=== PATIENT | male | born 1950 | race Caucasian/White ===

== ENCOUNTER 2020-07-10 12:48 | Emergency (ER) | payer OTHER, SELFPAY ==
[2020-07-10 12:49] VITALS: BP 164/110; PULSE 86; RESP 18; TEMP 36.5; O2SAT 97; BMI 34.0
[2020-07-10 12:56] VITALS: BP 164/110; RESP 88; O2SAT 98
--- NOTE | 2020-07-10 12:56 | ED_ITS ---
HPI - Wound/Laceration General: Chief Complaint: Wound/Laceration Stated Complaint: TABLE SAW VS L INDEX FINGER Time Seen by Provider: 07/10/20 12:55 History of Present Illness: HPI narrative: Patient is a 69-year-old male who comes to the ED with injury to left index finger. Patient says yesterday he was using his table saw and cut the tip of his left index finger. He was seen at [facility] today and they sent him over here. Patient says he is up-to-date on his tetanus. He says pain is mild and he does not need any pain meds while here in the ED. Associated symptoms: Denies chills, fever(s), nausea or vomiting Review of Systems Const: Denies: fever(s), chills or fatigue Eyes: Denies: change in vision or eye discomfort ENMT: Denies: throat pain, odynophagia, nasal discharge or nasal congestion Card: Denies: chest pain, palpitations, edema, swelling of feet/ankles, dyspnea on exertion or orthopnea Resp: Denies: dyspnea, productive cough or non-productive cough GI: Denies: abdominal pain, nausea, vomiting, diarrhea, constipation or hematochezia : Denies: flank pain, difficulty urinating, dysuria or hematuria Musc: Reports: extremity pain (Laceration injury to tip of left index finger.); Denies: neck pain, back pain or extremity swelling Skin/Breast: Denies: rash or new lesions Neuro: Denies: headache(s), numbness in extremities or weakness in extremities Physical Exam Const: COMMON NORMALS: patient oriented x3 HENMT: COMMON NORMALS: normocephalic HEAD & SCALP: normocephalic MOUTH: Normal oral and palatal mucosa present THROAT: posterior oropharynx normal and uvula midline Neck/C-Spine: COMMON NORMALS: supple GENERAL: Yes normal visual inspection Resp: COMMON NORMALS: normal respiratory effort, No retractions, No use of accessory muscles and clear to auscultation bilaterally AUSCULTATION: clear to auscultation bilaterally Cardio: COMMON NORMALS: regular rate, regular rhythm, S1 normal heart sound present, S2 normal heart sound present, No gallops present (Cardio), No clicks present (Cardio), No murmurs present (Cardio) and Peripheral pulses 2+ throughout RATE: regular rate RHYTHM: regular rhythm HEART SOUNDS: S1 normal heart sound present and S2 normal heart sound present PERIPHERAL PULSES: Peripheral pulses 2+ throughout GI: COMMON NORMALS: Normal to inspection, nondistended, normoactive bowel sounds present, Soft to palpation, non-tender and no masses PALPATION: Yes Soft to palpation : COMMON NORMALS: Yes no CVA tenderness BLADDER/KIDNEY EXAM: Yes no CVA tenderness Back/Pelvis: COMMON NORMALS: no CVA tenderness Extremity: LEFT UPPER EXTREMITY: Yes hand & digits Left hand and digits: Yes inspection (Index finger tip has skin avulsed with injury to the distal nail. The nail matrix is normal and undisturbed. No active bleeding, purulent drainage or contamination seen.), Yes palpation (Very mild tenderness.), Yes ROM (Full) and Yes neurovascular exam (Intact) Neuro: COMMON NORMALS: patient oriented x3 and moves all extremities Skin: TRAUMA: other (Avulsion of skin on distal aspect of left index finger. No erythema, purulent drainage, bleeding or warmth. Exam showed no signs of infection.) Course 2 Vital Signs: Vital signs: Vital Signs Temperature 97.7 F 07/10/20 12:49 Pulse Rate 77 07/10/20 13:55 Respiratory Rate 17 07/10/20 13:55 Blood Pressure 143/94 07/10/20 13:55 Pulse Oximetry 96 07/10/20 13:55 MDM - Wound/Laceration MDM Narrative: Medical decision making narrative: Patient is a 6-year-old male comes to the ED after cutting the tip of his left index finger with a table saw. Injury occurred yesterday. Exam shows no active bleeding, contamination or purulent drainage seen. Left index finger has a avulsed skin tip with distal nail damage. Nail matrix normal intact. Exam showed no signs of infection present. X-ray shows fracture of distal phalanx of index finger. Patient diagnosed with open fracture due to wound. He was given a shot of Rocephin while here in the ED wound was cleaned and bacitracin was placed and bandage applied on wound. Finger splint placed. I placed an order to case management for patient to be referred to orthopedic doctor and wound care clinic. Patient was discharged with prescription of cephalexin. Return to ED precautions given. Patient understood and agree with plan. Imaging Data^: Xray Ortho: Attestation: I personally reviewed and interpreted this imaging study as follows: My impression: Left hand x-ray?open distal phalanx fracture of index finger. Discharge Plan Discharge Patient Disposition: Home Clinical Impression: Open fracture of tuft of distal phalanx of finger Avulsion of skin of finger Qualifiers: Encounter type: initial encounter Qualified Code(s): S61.209A - Unspecified open wound of unspecified finger without damage to nail, initial encounter Condition: Stable Prescriptions: New cephalexin 500 mg capsule 500 mg PO Q6H 10 Days Qty: 40 RF: 0 Triple Antibiotic 3.5mg-400 unit- 5,000 unit/gram ointment 1 applic TOPICAL DAILY Qty: 9 RF: 0 Discharge Orders: Discharge Order (Routine); Ordered 07/10/20 Ordered By: Elmer Sánchez Discharge Diet: Regular Discharge Activity: Limit activity as instructed Patient Instructions: Fractures - Phalanx (Finger), Skin Avulsion (ED) Activity Restrictions/Additional Instructions: Follow-up with medical provider as directed. Case management should be contacting you in the next several days to set up an appointment with wound care. [facility]. Take medications as prescribed. Clean and rebandage daily. Return to the ER or your medical provider if condition worsens. Please read and understand discharge instructions. If any questions, please ask. Discharge Date/Time: 07/10/20 13:59 Coding Level of Care Code ED Grinder Dresser for Adair Castillo Exam Comprehensive
--- NOTE | 2020-07-10 12:56 | XR_ITS ---
WS: [id number] XR hand LT min 3V* [id number] REASON FOR EXAM: index finger cut by table saw FINDINGS: Amputation of the soft tissues of the distal left index finger. Underlying this there is amputation a nd fragmentation of the medial portion of the tuft of the distal phalanx of the left index finger. Minor degenerative arthropathic changes in the fingers and thumb. Small lucent septated area in the left radial styloid, possible enchondroma. XR/XR hand LT min 3V* [id number] IMPRESSION: Soft tissue and bone injury of the distal left index finger as above. Small lucent lesion in the distal left radius as above.
--- NOTE | 2020-07-10 13:10 | PC.NURSE ---
pt laceration to left 1st finger. wound cleaned and rebandaged.
[2020-07-10] MEDS: cefTRIAXone 1,000 mg SDV 1000 MG IM (13:45)
[2020-07-10] MEDS: lidocaine 1% INJ 20 mL 2.1 ML XX (13:45)
[2020-07-10] MEDS: bacitracin ointment Pkt 1 EACH TOPICAL (13:46)
[2020-07-10 13:55] VITALS: BP 143/94; PULSE 77; RESP 17; O2SAT 96
--- NOTE | 2020-07-11 09:04 | DCPLANNER ---
revenue cycle manager had message to schedule a follow up appointment for patient with ortho and Wound Care. revenue cycle manager called Wound Care, spoke with Desi, a follow up appointment is scheduled for , July 17, 2020 at 8:30 with Aimee. revenue cycle manager also called the ortho clinic, spoke with Mimi, gave her the patients information. revenue cycle manager was told that patients information would be printed and reviewed. Clinic will call patient with appointment information. [facility], caseworker protective services [facility].
--- NOTE | 2020-07-16 15:40 | DCPLANNER ---
Patient has a follow up appointment scheduled for Tuesday, July 16, 2020 at 8:[address] Avila. Clinic will call patient with appointment information.
--- NOTE | 2020-08-07 15:41 | DCPLANNER ---
Patient had a follow up appointment for patient with Wound Care - 07.17.20 - patient did attend Patient had a follow up appointment with ortho on 07.16.20 - patient did attend appointment
== END 2020-07-10 13:59 | disposition home or self-care (01) ==
PROVIDERS: Emergency Provider Physician Assistant
DX: S62.631B Displaced fracture of distal phalanx of left index finger, initial encounter for open fracture (principal); W27.0XXA Contact with workbench tool, initial encounter
CPT/HCPCS: 12345; 73130; 96372; 99281; 99283; J0696

== ENCOUNTER → 2020-07-16 08:35 | Outpatient (BNVA) | payer OTHER, SELFPAY | PROVIDERS: Referring Provider Physician Assistant; Visit Provider Specialist | DX: S62.639B Displaced fracture of distal phalanx of unspecified finger, initial encounter for open fracture (principal); X58.XXXA Exposure to other specified factors, initial encounter | CPT/HCPCS: 73140 ==

== ENCOUNTER 2020-07-17 08:19 | Outpatient (CLI) | payer OTHER, SELFPAY | END 2020-07-17 08:20 | disposition home or self-care (01) | LOC: WOUND 08:21 | PROVIDERS: Visit Provider Nurse Practitioner Family | DX: L98.498 Non-pressure chronic ulcer of skin of other sites with other specified severity (principal) | CPT/HCPCS: 11042 ==

== ENCOUNTER → 2020-07-23 08:39 | Outpatient (BNVA) | payer OTHER, SELFPAY | PROVIDERS: Visit Provider Specialist | DX: S62.639B Displaced fracture of distal phalanx of unspecified finger, initial encounter for open fracture (principal); X58.XXXA Exposure to other specified factors, initial encounter | CPT/HCPCS: 73140 ==

== ENCOUNTER 2020-07-23 09:15 | Outpatient (CLI) | payer OTHER, SELFPAY | END 2020-07-23 09:16 | disposition home or self-care (01) | LOC: WOUND 09:16 | PROVIDERS: Visit Provider Nurse Practitioner Family | DX: L98.498 Non-pressure chronic ulcer of skin of other sites with other specified severity (principal) | CPT/HCPCS: 11042 ==

== ENCOUNTER 2020-08-06 09:06 | Outpatient (CLI) | payer OTHER, SELFPAY | END 2020-08-06 09:07 | disposition home or self-care (01) | LOC: WOUND 09:08 | PROVIDERS: Visit Provider Thoracic Surgery (Cardiothoracic Vascular Surgery) | DX: L98.492 Non-pressure chronic ulcer of skin of other sites with fat layer exposed (principal); I96 Gangrene, not elsewhere classified | CPT/HCPCS: 11042 ==

== ENCOUNTER 2020-08-13 09:04 | Outpatient (CLI) | payer OTHER, SELFPAY | END 2020-08-13 09:05 | disposition home or self-care (01) | LOC: WOUND 09:05 | PROVIDERS: Visit Provider Nurse Practitioner Family | DX: W29.8XXA Contact with other powered hand tools and household machinery, initial encounter; S61.221A Laceration with foreign body of left index finger without damage to nail, initial encounter; X58.XXXA Exposure to other specified factors, initial encounter | CPT/HCPCS: 11042 ==

== ENCOUNTER 2020-08-20 09:25 | Outpatient (CLI) | payer OTHER, SELFPAY | END 2020-08-20 09:26 | disposition home or self-care (01) | LOC: WOUND 09:29 | PROVIDERS: Visit Provider Thoracic Surgery (Cardiothoracic Vascular Surgery) | DX: L98.492 Non-pressure chronic ulcer of skin of other sites with fat layer exposed (principal) | CPT/HCPCS: 11042 ==

== ENCOUNTER 2020-09-03 09:31 | Outpatient (CLI) | payer OTHER, SELFPAY | END 2020-09-03 09:32 | disposition home or self-care (01) | LOC: WOUND 09:31 | PROVIDERS: Visit Provider Nurse Practitioner Family | DX: Z09 Encounter for follow-up examination after completed treatment for conditions other than malignant neoplasm (principal) | CPT/HCPCS: 99212 ==

== ENCOUNTER 2023-01-12 10:21 | Outpatient (CLI) | payer OTHER, SELFPAY ==
--- NOTE | 2023-01-12 10:40 | MR_ITS ---
WS: [id number] MRI BRAIN WITH AND WITHOUT CONTRAST HISTORY: POSITIVE ROMBERG, NEW ONSET TREMOR, SHUFFLED GAIT COMPARISON: None available. TECHNIQUE: Multiplanar imaging performed through the brain with MultiHance 20 ml's IV. No acute infarcts are seen. Reynolds-white matter differentiation is well preserved. Mild cerebral atroph y. Numerous T2 and FLAIR signal hyperintensities throughout the white matter. Signal abnormalities in the supratentorial white matter and symmetric and bilateral. No infarct. There is also mild bilatera l cerebellar volume loss. No susceptibility artifacts or prior lacunar infarcts. Ventricles and extra-axial spaces are normal. Clivus and pituitary gland are normal. Visualized posterior fossa and brainstem are also normal. Postcontrast images are negative for masses or vascular malformations. Dural venous sinuses are normal. Paranasal sinuses: Very mild enhancement involving mucosa of the paranasal sinuses. No air-fluid leve ls. Mastoid air cells: Normal. Calvarium and scalp: Normal. MR/MR head wo/w con [id number] IMPRESSION: 1. No acute infarct or enhancing masses. 2. Very mild atrophy with moderate small vessel ischemic type changes in the w jaxon matter. 3. No prior infarcts. 4. Mild bilateral cerebellar atrophy.
[2023-01-12] MEDS: gadobenate dimeglumine 20 mL vial IV (13:15)
== END 2023-01-12 10:22 | disposition home or self-care (01) ==
LOC: RAD 10:25
PROVIDERS: PCP Nurse Practitioner; Visit Provider Nurse Practitioner
DX: R25.1 Tremor, unspecified (principal); R26.89 Other abnormalities of gait and mobility; G31.9 Degenerative disease of nervous system, unspecified
CPT/HCPCS: 70553; A9577

== ENCOUNTER → 2023-03-30 10:21 | Outpatient (BNVA) | payer OTHER, SELFPAY | PROVIDERS: PCP Nurse Practitioner; Referring Provider Nurse Practitioner; Visit Provider Psychiatry & Neurology Neurology | DX: I10 Essential (primary) hypertension; G20 Parkinson's disease; R68.89 Other general symptoms and signs; R26.81 Unsteadiness on feet; E11.9 Type 2 diabetes mellitus without complications; Z79.84 Long term (current) use of oral hypoglycemic drugs | CPT/HCPCS: 99203 ==

== ENCOUNTER → 2023-03-30 10:21 | Outpatient (BNVA) | payer OTHER, SELFPAY | PROVIDERS: PCP Nurse Practitioner; Referring Provider Nurse Practitioner; Visit Provider Psychiatry & Neurology Neurology | DX: R25.1 Tremor, unspecified (principal); I10 Essential (primary) hypertension | CPT/HCPCS: 86780 ==

== ENCOUNTER → 2023-03-30 10:21 | Outpatient (BNVA) | payer OTHER, SELFPAY | PROVIDERS: PCP Nurse Practitioner; Referring Provider Nurse Practitioner; Visit Provider Psychiatry & Neurology Neurology | DX: R25.1 Tremor, unspecified (principal); I10 Essential (primary) hypertension | CPT/HCPCS: 80053; 82306; 82607; 82746; 83735; 83921; 84155; 84165; 84439; 84443; 84481; 85025; 85651; 86140; 86160; 86162; 86235; 86255; 86334; 86376; 86431; 86617 ==

== ENCOUNTER 2023-04-11 11:35 | Outpatient (CLI) | payer OTHER, SELFPAY ==
--- NOTE | 2023-04-11 12:30 | USCV_ITS ---
Callum Anderson Age: 72 Gender: M : 1950 Exam Date: 04/11/2023 11:57 Ordering Phys: Charles Cantu MD Technologist: KAREN Exam Location: [facility] [place] Indication: TREMORS Risk Factors: Previous Vascular Surgery: Right Brachial BP: / Left Brachial BP: / Right Left Velocity (cm/s) Spectral Plaque Velocity (cm/s) Spectral Plaque Syst/Diast Broadening Syst/Diast Broadening 98.10/ 15.40 Prox CCA 164.70/ 17.10 79.50/ 12.00 Mid CCA 121.20/ 18.60 76.00/ 18.80 Distal CCA 93.70 / 12.10 48.00/ 9.20 Prox ICA 69.10 / 16.80 54.40/ 14.30 Mid ICA 72.20 / 18.90 49.60/ 13.20 Distal ICA 58.20 / 13.90 117.80 ECA 126.80 0.55 ICA/CCA 0.44 Antegrade Vertebral Antegrade 38.10/ 11.70 cm/s 82.30/ 8.50 cm/s Tri Subclavian Tri 201.5 114.4 0 0 CONCLUSIONS Right ICA stenosis <50%. Mild atheromatous plaque right carotid bulb/ICA. Left ICA stenosis <50%. Mild atheromatous plaque left carotid bulb/ICA. Intimal thickening in the common carotid arteries and internal carotid arteries bilaterally. Normal antegrade Doppler flow noted in the right vertebral artery. Normal antegrade Doppler flow noted in the left vertebral artery. Callum Bullock MD (Electronically Signed) Final Date: 11 April 2023 14:02 S
[2023-04-11] MEDS: perflutren protein-a microsphr 0.22 mg/mL SDV 3 mL IV (12:43)
--- NOTE | 2023-04-11 13:00 | USCV_ITS ---
Callum Anderson Age: 72 Gender: M : 1950 Exam Date: 04/11/2023 12:12 Ordering Phys: Charles Cantu MD Technologist: KAREN [place] [facility] [place]ication: TREMORS, LEG SWELLING BP: 134 / 67 HR: 89 Rhythm: Sinus Technical Quality: Adequate MEASUREMENTS (Male / Female) Normal Values 2D ECHO LVOT Diameter 2.0 cm LV Ejection Fraction MOD 2C 65.6 % LV Ejection Fraction 2C AL 65.6 % LA Diameter 2.6 cm LA Width 2.9 cm LA Height 5.3 cm RA Width 1.9 cm RA Height 4.3 cm Aorta at Sinotubular Diameter 2.3 cm M-MODE Aortic Annulus Diameter 2.4 cm LA Ao Ratio MM 1.1 MV E Point Septal Separation 0.7 cm DOPPLER AV Peak Velocity 160.7 cm/s LVOT Peak Velocity 155.0 cm/s AV Area Cont Eq vti 2.6 cm squared AV Area Cont Eq pk 3.1 cm squared MV Peak Velocity 127.0 cm/s MV Area PHT 4.1 cm squared Mitral E to A Ratio 0.6 MV E' Velocity 42.0 cm/s Mitral E to MV E' Ratio 8.3 Mitral E to LV E' Lateral Ratio 7.1 Mitral E to LV E' Septal Ratio 10.2 TR Peak Velocity 184.4 cm/s TR Peak Gradient 13.6 mmHg TR Mean Velocity 132.2 cm/s TR Mean Gradient 8.0 mmHg TR Velocity Time Integral 36.9 cm TV Peak E Velocity 57.0 cm/s Right Atrial Pressure 8.0 mmHg Pulmonary Artery Systolic Pressu 21.6 mmHg PV Peak Velocity 131.0 cm/s RV Acceleration Time 0.1 s RV Ejection Time 0.3 s RV AcT/ET 0.4 FINDINGS Left Ventricle Normal left ventricular size, systolic function and wall thickness, with no regional wall motion abnormalities. Left ventricular ejection fraction is estimated at 70 %. Grade I diastolic dysfunction (abnormal relaxation filling pattern), normal to mildly elevated filling pressures. Right Ventricle Normal right ventricular size and systolic function. Right ventricular systolic pressure 21.6 mmHg. Right Atrium Normal right atrial size. Left Atrium Normal left atrial size. Mitral Valve Structurally normal mitral valve. No mitral valve stenosis. Trace mitral valve regurgitation. Aortic Valve Structurally normal trileaflet aortic valve. No aortic valve stenosis. No aortic valve regurgitation. Tricuspid Valve Structurally normal tricuspid valve. No tricuspid valve stenosis. Trace tricuspid valve regurgitation. Pulmonic Valve Pulmonic valve not well visualized. No pulmonary valve stenosis. Trace pulmonary valve regurgitation. Pericardium No pericardial effusion. Aorta Normal size aortic root and proximal ascending aorta. IVC Inferior vena cava not visualized. CONCLUSIONS 1. This is A technically difficult study. Optison was used per protocol. 2. Normal left ventricular size, systolic function and wall thickness, with no regional wall motion abnormalities. Left ventricular ejection fraction is estimated at 70 %. Grade I diastolic dysfunction (abnormal relaxation filling pattern), normal to mildly elevated filling pressures. 3. No significant valvular abnormality. 4. No prior similar studies to compare. Merary Chin MD (Electronically Signed) Final Date: 11 April 2023 16:32 S
== END 2023-04-11 11:36 | disposition home or self-care (01) ==
PROVIDERS: PCP Nurse Practitioner; Visit Provider Psychiatry & Neurology Neurology
DX: G20 Parkinson's disease (principal); M79.89 Other specified soft tissue disorders; I65.23 Occlusion and stenosis of bilateral carotid arteries; I11.0 Hypertensive heart disease with heart failure; I50.33 Acute on chronic diastolic (congestive) heart failure; E11.9 Type 2 diabetes mellitus without complications; K21.9 Gastro-esophageal reflux disease without esophagitis; E66.9 Obesity, unspecified; Z68.33 Body mass index [BMI] 33.0-33.9, adult; Z82.49 Family history of ischemic heart disease and other diseases of the circulatory system; Z79.84 Long term (current) use of oral hypoglycemic drugs; Z79.899 Other long term (current) drug therapy
CPT/HCPCS: 80053; 82306; 82607; 82746; 83735; 83921; 84155; 84165; 84439; 84443; 84481; 85025; 85651; 86140; 86160; 86162; 86235; 86255; 86334; 86376; 86431; 86617; 93880; 99214; C8929; Q9956

== ENCOUNTER → 2023-04-25 09:30 | Outpatient (BNVA) | payer OTHER, SELFPAY | PROVIDERS: PCP Nurse Practitioner; Visit Provider Internal Medicine Cardiovascular Disease | DX: I10 Essential (primary) hypertension (principal); R07.9 Chest pain, unspecified | CPT/HCPCS: 80053; 83735; 83880 ==

== ENCOUNTER → 2023-05-02 09:12 | Outpatient (BNVA) | payer OTHER, SELFPAY | PROVIDERS: PCP Nurse Practitioner; Visit Provider Podiatrist Foot & Ankle Surgery | DX: B35.1 Tinea unguium (principal); G62.9 Polyneuropathy, unspecified; I73.9 Peripheral vascular disease, unspecified; M21.6X1 Other acquired deformities of right foot; M21.6X2 Other acquired deformities of left foot; E11.42 Type 2 diabetes mellitus with diabetic polyneuropathy | CPT/HCPCS: 11721; 99204 ==

== ENCOUNTER → 2023-05-11 13:15 | Outpatient (BNVA) | payer OTHER, SELFPAY | PROVIDERS: PCP Nurse Practitioner; Visit Provider Psychiatry & Neurology Neurology | DX: G20 Parkinson's disease (principal) | CPT/HCPCS: 99212 ==

== ENCOUNTER → 2023-06-21 13:36 | Outpatient (BNVA) | payer OTHER, SELFPAY | PROVIDERS: PCP Nurse Practitioner; Visit Provider Psychiatry & Neurology Neurology | DX: G20.A1 Parkinson's disease without dyskinesia, without mention of fluctuations (principal) | CPT/HCPCS: 99212 ==

== ENCOUNTER → 2023-07-11 07:48 | Outpatient (BNVA) | payer OTHER, SELFPAY | PROVIDERS: PCP Nurse Practitioner; Visit Provider Podiatrist Foot & Ankle Surgery | DX: I73.9 Peripheral vascular disease, unspecified (principal); B35.1 Tinea unguium; G62.9 Polyneuropathy, unspecified; M21.6X1 Other acquired deformities of right foot; M21.6X2 Other acquired deformities of left foot; E11.42 Type 2 diabetes mellitus with diabetic polyneuropathy; Z79.84 Long term (current) use of oral hypoglycemic drugs | CPT/HCPCS: 11721 ==

== ENCOUNTER → 2023-07-18 08:38 | Outpatient (BNVA) | payer OTHER, SELFPAY | PROVIDERS: PCP Nurse Practitioner; Visit Provider Thoracic Surgery (Cardiothoracic Vascular Surgery) | DX: I89.0 Lymphedema, not elsewhere classified | CPT/HCPCS: 99212 ==

== ENCOUNTER 2023-07-19 11:52 | Outpatient (CLI) | payer OTHER, SELFPAY ==
--- NOTE | 2023-07-19 12:30 | USCV_ITS ---
Callum Anderson Age: 72 Gender: M : 1950 Exam Date: 07/19/2023 12:15 Ordering Phys: Armin Palmer MD (Andy) [email or web address] [place] Technologist: Raul Clark [place] [facility] [place]: HISTORY: PROCEDURES: FINDINGS: All deep veins demonstrated compressibility without evidence of intraluminal thrombus or increased echogenicity. Spectral analysis of Doppler signals demonstrates normal response to compression maneuvers indicating patency without obstruction. Reflux determinations were made with the patient in the dependent position, the weight being on the contralateral leg. There is significant reflux in lt gsaph distal. This patient wound not be a good canidate for thremal ablations due to the veins superficial location CONCLUSIONS 1. No evidence of DVT in the above-mentioned identifiable veins. 2. No significant venous reflux on the right side 3. Significant venous reflux of greater than 500 ms was noted at the below-knee segment of the greater saphenous vein on the left side. But the vein was found to be very superficial, 0.15 cm deep from the surface. 4. No other significant reflexes were noted in the deep or superficial veins. Dr Timo Floyd MD [facility] (Electronically Signed) Final Date: 21 July 2023 09:45 S
== END 2023-07-19 11:53 | disposition home or self-care (01) ==
LOC: RAD 11:52
PROVIDERS: PCP Nurse Practitioner; Visit Provider Thoracic Surgery (Cardiothoracic Vascular Surgery)
DX: R60.0 Localized edema (principal)
CPT/HCPCS: 93970

== ENCOUNTER → 2023-08-16 09:07 | Outpatient (BNVA) | payer OTHER, SELFPAY | PROVIDERS: PCP Nurse Practitioner; Visit Provider Internal Medicine Rheumatology | DX: M79.18 Myalgia, other site (principal); Z79.899 Other long term (current) drug therapy; R76.0 Raised antibody titer; B02.29 Other postherpetic nervous system involvement | CPT/HCPCS: 80076; 82565; 85025; 85651; 86140; 86200; 99204 ==

== ENCOUNTER 2023-08-24 13:02 | Outpatient (CLI) | payer OTHER, SELFPAY ==
--- NOTE | 2023-08-24 13:30 | USCV_ITS ---
Callum Anderson Age: 72 Gender: M : 1950 Exam Date: 08/24/2023 13:30 Ordering Phys: Buzz Eden MD Technologist: CAROL [place]am [place] [facility] [place]ication: Muscle Pain Risk Factors: Previous Vascular Surgery: RIGHT LEFT BP: 144.0 / 77.00 BP: 159.0/ 84.00 0 0 Waveform Velocity (cm/s) Velocity (cm/s) Waveform Triphasic 77.7 Iliac Prox 103.0 Triphasic Triphasic 96.2 Iliac Mid 90.3 Triphasic Triphasic 93.4 Iliac Distal 93.8 Triphasic Triphasic 83.5 SAMPLE WORKER 91.7 Triphasic Triphasic 97.4 SFA Prox 105.6 Triphasic Triphasic 88.1 SFA Mid 99.4 Triphasic Triphasic SFA Dist Triphasic 115.7 80.8 Triphasic 72.5 POP 89.4 Triphasic Triphasic 76.1 CATTERY OPERATOR 75.4 Triphasic Triphasic 86.0 DPA 81.4 Triphasic 0.9 YUKI 1.0 FINDINGS Intimal thickening and minimal plaques in the iliac and femoral arteries bilaterally Normal Doppler flow velocities and Doppler waveforms bilaterally Resting YUKI 0.9 on the right side and 1.0 on the left CONCLUSIONS 1. Normal resting YUKI on the left side with a normal arterial Doppler waveforms and velocities suggesting no significant arterial obstruction 2. Borderline low resting YUKI of 0.9 on the right side with a normal Doppler velocities and waveforms, could be related to technical problems. Dr Timo Floyd MD [facility] (Electronically Signed) Final Date: 27 August 2023 14:55 S
== END 2023-08-24 13:03 | disposition home or self-care (01) ==
LOC: RAD 13:03
PROVIDERS: PCP Nurse Practitioner; Visit Provider Internal Medicine Rheumatology
DX: M79.18 Myalgia, other site (principal); M62.89 Other specified disorders of muscle; M79.662 Pain in left lower leg; M79.661 Pain in right lower leg
CPT/HCPCS: 93925

== ENCOUNTER → 2023-10-10 10:31 | Outpatient (BNVA) | payer OTHER, SELFPAY | PROVIDERS: PCP Nurse Practitioner; Visit Provider Podiatrist Foot & Ankle Surgery | DX: B35.1 Tinea unguium (principal); E11.42 Type 2 diabetes mellitus with diabetic polyneuropathy; G62.9 Polyneuropathy, unspecified; I73.9 Peripheral vascular disease, unspecified; M21.6X1 Other acquired deformities of right foot; M21.6X2 Other acquired deformities of left foot | CPT/HCPCS: 11721 ==

== ENCOUNTER → 2023-11-15 09:52 | Outpatient (BNVA) | payer OTHER, SELFPAY | PROVIDERS: PCP Nurse Practitioner; Visit Provider Internal Medicine Rheumatology | DX: R76.0 Raised antibody titer (principal); B02.29 Other postherpetic nervous system involvement; M15.9 Polyosteoarthritis, unspecified; K21.9 Gastro-esophageal reflux disease without esophagitis; I10 Essential (primary) hypertension; E66.9 Obesity, unspecified; Z68.36 Body mass index [BMI] 36.0-36.9, adult | CPT/HCPCS: 99213; 99214 ==

== ENCOUNTER → 2023-12-19 10:52 | Outpatient (BNVA) | payer OTHER, SELFPAY | PROVIDERS: PCP Nurse Practitioner; Visit Provider Podiatrist Foot & Ankle Surgery | DX: B35.1 Tinea unguium (principal); G62.9 Polyneuropathy, unspecified; I73.9 Peripheral vascular disease, unspecified; M21.6X1 Other acquired deformities of right foot; M21.6X2 Other acquired deformities of left foot; E11.42 Type 2 diabetes mellitus with diabetic polyneuropathy | CPT/HCPCS: 11721 ==

== ENCOUNTER → 2024-02-28 10:39 | Outpatient (BNVA) | payer OTHER, SELFPAY | PROVIDERS: PCP Nurse Practitioner; Visit Provider Podiatrist Foot & Ankle Surgery | DX: B35.1 Tinea unguium (principal); G62.9 Polyneuropathy, unspecified; I73.9 Peripheral vascular disease, unspecified; M21.6X1 Other acquired deformities of right foot; M21.6X2 Other acquired deformities of left foot; E11.42 Type 2 diabetes mellitus with diabetic polyneuropathy; Z79.84 Long term (current) use of oral hypoglycemic drugs | CPT/HCPCS: 11721 ==

== ENCOUNTER → 2024-05-01 10:30 | Outpatient (BNVA) | payer OTHER, SELFPAY | PROVIDERS: PCP Nurse Practitioner; Visit Provider Podiatrist Foot & Ankle Surgery | DX: B35.1 Tinea unguium (principal); G62.9 Polyneuropathy, unspecified; I73.9 Peripheral vascular disease, unspecified; M21.6X1 Other acquired deformities of right foot; M21.6X2 Other acquired deformities of left foot; E11.42 Type 2 diabetes mellitus with diabetic polyneuropathy; Z79.84 Long term (current) use of oral hypoglycemic drugs | CPT/HCPCS: 11721 ==

== ENCOUNTER → 2024-05-08 14:48 | Outpatient (BNVA) | payer OTHER, SELFPAY | PROVIDERS: PCP Nurse Practitioner; Visit Provider Psychiatry & Neurology Neurology | DX: E11.9 Type 2 diabetes mellitus without complications (principal); G20.A1 Parkinson's disease without dyskinesia, without mention of fluctuations; I10 Essential (primary) hypertension | CPT/HCPCS: 99212 ==

== ENCOUNTER → 2024-07-03 11:03 | Outpatient (BNVA) | payer OTHER, SELFPAY | PROVIDERS: PCP Nurse Practitioner; Visit Provider Podiatrist Foot & Ankle Surgery | DX: B35.1 Tinea unguium (principal); G62.9 Polyneuropathy, unspecified; I73.9 Peripheral vascular disease, unspecified; M21.6X1 Other acquired deformities of right foot; M21.6X2 Other acquired deformities of left foot; E11.42 Type 2 diabetes mellitus with diabetic polyneuropathy; Z79.84 Long term (current) use of oral hypoglycemic drugs | CPT/HCPCS: 11055; 11721 ==

== ENCOUNTER → 2024-09-11 09:27 | Outpatient (BNVA) | payer OTHER, SELFPAY | PROVIDERS: PCP Nurse Practitioner; Visit Provider Podiatrist Foot & Ankle Surgery | DX: B35.1 Tinea unguium (principal); G62.9 Polyneuropathy, unspecified; I73.9 Peripheral vascular disease, unspecified; M21.6X1 Other acquired deformities of right foot; M21.6X2 Other acquired deformities of left foot; E11.42 Type 2 diabetes mellitus with diabetic polyneuropathy; L84 Corns and callosities; Z79.84 Long term (current) use of oral hypoglycemic drugs | CPT/HCPCS: 11055; 11721 ==

== ENCOUNTER → 2024-11-07 13:03 | Outpatient (BNVA) | payer OTHER, SELFPAY | PROVIDERS: PCP Nurse Practitioner; Visit Provider Psychiatry & Neurology Neurology | DX: G20.A1 Parkinson's disease without dyskinesia, without mention of fluctuations (principal) | CPT/HCPCS: 99212 ==

== ENCOUNTER → 2024-11-13 09:48 | Outpatient (BNVA) | payer OTHER, SELFPAY | PROVIDERS: PCP Nurse Practitioner; Visit Provider Podiatrist Foot & Ankle Surgery | DX: E11.42 Type 2 diabetes mellitus with diabetic polyneuropathy (principal); B35.1 Tinea unguium; L84 Corns and callosities; G62.9 Polyneuropathy, unspecified; I73.9 Peripheral vascular disease, unspecified; M21.6X1 Other acquired deformities of right foot; M21.6X2 Other acquired deformities of left foot; Z79.84 Long term (current) use of oral hypoglycemic drugs | CPT/HCPCS: 11055; 11721 ==

== ENCOUNTER → 2025-01-15 10:32 | Outpatient (BNVA) | payer OTHER, SELFPAY | PROVIDERS: PCP Nurse Practitioner; Visit Provider Podiatrist Foot & Ankle Surgery | DX: E11.42 Type 2 diabetes mellitus with diabetic polyneuropathy (principal); B35.1 Tinea unguium; L84 Corns and callosities; G62.9 Polyneuropathy, unspecified; I73.9 Peripheral vascular disease, unspecified; M21.6X1 Other acquired deformities of right foot; M21.6X2 Other acquired deformities of left foot; Z79.84 Long term (current) use of oral hypoglycemic drugs | CPT/HCPCS: 11055; 11721 ==

== ENCOUNTER → 2025-02-18 13:10 | Outpatient (BNVA) | payer OTHER, SELFPAY | PROVIDERS: PCP Nurse Practitioner; Visit Provider Psychiatry & Neurology Neurology | DX: G20.A1 Parkinson's disease without dyskinesia, without mention of fluctuations (principal) | CPT/HCPCS: 99212 ==

== ENCOUNTER → 2025-03-26 10:20 | Outpatient (BNVA) | payer OTHER, SELFPAY | PROVIDERS: PCP Nurse Practitioner; Visit Provider Podiatrist Foot & Ankle Surgery | DX: E11.42 Type 2 diabetes mellitus with diabetic polyneuropathy (principal); B35.1 Tinea unguium; G62.9 Polyneuropathy, unspecified; I73.9 Peripheral vascular disease, unspecified; Z79.84 Long term (current) use of oral hypoglycemic drugs | CPT/HCPCS: 11721 ==

== ENCOUNTER → 2025-06-05 10:48 | Outpatient (BNVA) | payer OTHER, SELFPAY | PROVIDERS: PCP Nurse Practitioner; Visit Provider Podiatrist Foot & Ankle Surgery | DX: E11.42 Type 2 diabetes mellitus with diabetic polyneuropathy (principal); B35.1 Tinea unguium; G62.9 Polyneuropathy, unspecified; I73.9 Peripheral vascular disease, unspecified; Z79.84 Long term (current) use of oral hypoglycemic drugs | CPT/HCPCS: 11721 ==

== ENCOUNTER 2025-06-11 14:38 | Inpatient (IN) | payer OTHER, SELFPAY ==
[2025-06-11] VITALS (48 sets, daily range): BP systolic 110–153; BP diastolic 64–94; PULSE 78–112; RESP 17–38; TEMP 36.6–37.1; O2SAT 92–97
--- OUTSIDE RECORDS SUMMARY | 2025-06-11 14:43 | XMS_ITS | Patient Health Record ---
Author Organization [facility] Address [address] [place] [address] Care Team Providers Care Industrial Electrician Name Role Phone DaviduJdie ross Primary Care Provider [phone] Sarah Virgen [phone] Reason For Referral No Information Medications Medication SIG (Take, Route, Frequency, Duration) Notes Start Date End Date Status Lisinopril 40 MG Oral Tablet Lisinopril 40 MG Oral Tablet 07/09/2019 Active Metoclopramide 10 MG Oral Tablet Metoclopramide 10 MG Oral Tablet 07/09/2019 Active Amlodipine 10 MG Oral Tablet Amlodipine 10 MG Oral Tablet 07/09/2019 Active Aspirin 81 MG Oral Tablet Aspirin 81 MG Oral Tablet 07/09/2019 Active Omeprazole 40 MG Enteric Coated Capsule Omeprazole 40 MG Enteric Coated Capsule 07/09/2019 Active Immunizations Vaccine Route Administration Date Status Comme nts Influenza (whole), CPT 32416 Inactive Unknown 05/29/2019 Administered Social History Social History Additional Details Category Social Info Options Details zzMigrated Social History Migrated Social History Smoking Status:Never smoked tobacco (finding) Encounters Encounter Location Date Provider Diagnosis [facility] [address] [place] [address] 06/12/2024 Sarah Virgen Plan Of Treatment No Information
--- NOTE | 2025-06-11 14:47 | W.ED.AMS ---
HPI - Altered Mental Status General: Chief Complaint: Altered Mental Status Stated Complaint: AMS Time Seen by Provider: 06/11/25 14:44 History of Present Illness: 74-year-old man with a history of obesity, advanced Parkinson's, congestive heart failure, diabetes, hypertension and GERD who presents to the emergency room with difficulty speaking. His said symptoms started right at noon. He had been fine earlier today walking and talking. Upon arrival here he is completely aphasic. He can answer questions by nodding or using his fingers for numbers but cannot say his name or anything else. No focal weakness. He has chronic weakness in his legs and from a sitting position he has difficulty lifting them. No weakness in either of his arms. He follows commands appropriately. No obvious visual deficits. Related Data Home Medications ?Medication ?Instructions ?Recorded ?Confirmed omeprazole 40 mg capsule,delayed 40 mg PO DAILY 03/02/21 06/05/25 release magnesium oxide 400 mg PO DAILY 04/11/23 06/05/25 metformin 500 mg tablet 1,000 mg PO BID 04/11/23 06/05/25 omega-3 fatty acids [Fish Oil 1,000 mg PO DAILY 04/11/23 06/05/25 Concentrate] potassium chloride 20 mEq 20 meq PO DAILY 04/11/23 06/05/25 tablet,extended release acetaminophen 500 mg tablet 1,000 mg PO BID 08/16/23 06/05/25 (Tylenol Extra Strength) amlodipine 10 mg tablet (Norvasc) 10 mg PO DAILY 11/07/24 06/05/25 losartan 50 mg tablet 50 mg PO DAILY 11/13/24 06/05/25 rosuvastatin 20 mg tablet 20 mg PO DAILY 11/13/24 06/05/25 sertraline 50 mg tablet 50 mg PO DAILY 11/13/24 06/05/25 Previous Rx's ?Medication ?Instructions ?Recorded spironolactone 25 mg tablet 25 mg PO DAILY #90 tabs 04/11/23 diabetic shoes with 3 inserts #1 ea 08/18/23 diabetic shoes with 3 inserts #1 ea 12/19/23 diabetic shoes with 3 inserts #1 ea 05/01/24 carbidopa 25 mg-levodopa 100 mg 1 tab PO QID 90 days #360 tabs 02/18/25 tablet (Sinemet) cholecalciferol (vitamin D3) 625 50,000 unit PO .weekly #14 caps 02/18/25 mcg (25,000 unit) capsule Allergies Allergy/AdvReac Type Severity Reaction Status Date / Time No Known Allergies Allergy Verified 06/05/25 10:51 Review of Systems Narrative: Constitutional symptoms: Negative except as documented in HPI. Skin symptoms: Negative except as documented in HPI. Eye symptoms: Negative except as documented in HPI. ENMT symptoms: Negative except as documented in HPI. Respiratory symptoms: Negative except as documented in HPI. Cardiovascular symptoms: Negative except as documented in HPI. Gastrointestinal symptoms: Negative except as documented in HPI. Genitourinary symptoms: Negative except as documented in HPI. Musculoskeletal symptoms: Negative except as documented in HPI. Neurologic symptoms: Negative except as documented in HPI. Psychiatric symptoms: Negative except as documented in HPI. Endocrine symptoms: Negative except as documented in HPI. PFSH ED PFSH: Medical History (Updated 06/11/25 @ 16:12 by Lani Thakkar MD) Osteoarthritis (arthritis due to wear and tear of joints) Post herpetic neuralgia Raised antibody titer Muscle pain History of juvenile rheumatoid arthritis TIA (transient ischemic attack) History of colon cancer Diabetes mellitus Arthritis Obesity GERD (gastroesophageal reflux disease) HTN (hypertension) Family History Brother CAD (coronary artery disease) Mother CAD (coronary artery disease) Sister CAD (coronary artery disease) Denies family history of Diabetes Stroke Social History Smoking and tobacco/nicotine status: never used tobacco/nicotine Alcohol intake: current Alcohol intake frequency: holidays/special occasions only Substance/Drug Use: never Physical Exam Narrative: General: Alert, no acute distress. Skin: Warm, dry. Head: Normocephalic, atraumatic. Neck: Supple, trachea midline. Eye: Extraocular movements are intact. Ears, nose, mouth and throat: mucosa moist. Cardiovascular: Regular, Normal peripheral perfusion. Respiratory: Lungs are clear to auscultation, respirations are non-labored, breath sounds are equal, Symmetrical chest wall expansion. Gastrointestinal: Soft, Nontender, Non distended Musculoskeletal: Normal ROM, no deformity. Neurological: Alert and oriented, patient has complete aphasia. He can follow commands. When I ask him how many fingers I am holding up he cannot say it but can hold up the same number of fingers. He can nod his head yes and no. No obvious focal motor deficits. Psychiatric: Cooperative, appropriate mood & affect. Course Vital Signs: Vital signs: Vital Signs Temperature 98.8 F 06/11/25 14:39 Pulse Rate 96 06/11/25 16:56 Respiratory Rate 25 H 06/11/25 16:40 Blood Pressure 153/94 06/11/25 16:56 Pulse Oximetry 94 06/11/25 16:56 Oxygen Delivery Me thod Room Air 06/11/25 17:09 MDM - Altered Mental Status Medical Decision Making Medical decision making: Differential diagnosis for patient with focal neurologic deficit(s) includes but not limited to and based on the above HPI, review of systems and physical exam: ischemic stroke, hemorrhagic stroke and embolic stroke secondary to atrial fibrillation), TIA, Johnson's palsey, metabolic encephalopathy with previous stroke. Orders placed to evaluate differential diagnosis based on the above differential, HPI and physical exam ~1200: Last known well time 1439: Time of arrival by ambulance 1442: Time of my exam 1446: Stroke alert called overhead 1450: Telephone consultation with Dr. Quiroz who agrees that if no hemorrhage tenecteplase should be given 1500: I discussed CT findings with radiology and cleared for hemorrhage 1502: I discussed plan with patient's and she gave consent 1507: Parth was given NIH Stroke Scale/Score (NIHSS) from [email or web address] on 06/11/2025 All calculations should be rechecked by clinician prior to use RESULT SUMMARY: 7 points NIH Stroke Scale INPUTS: 1A: Level of consciousness ?> 0 = Alert; keenly responsive 1B: Ask month and age ?> 2 = 0 questions right 1C: 'Blink eyes' & 'squeeze hands' ?> 0 = Performs both tasks 2: Horizontal extraocular movements ?> 0 = Normal 3: Visual pollack ?> 0 = No visual loss 4: Facial palsy ?> 0 = Normal symmetry 5A: Left arm motor drift ?> 0 = No drift for 10 seconds 5B: Right arm motor drift ?> 0 = No drift for 10 seconds 6A: Left leg motor drift ?> 0 = No drift for 5 seconds 6B: Right leg motor drift ?> 0 = No drift for 5 seconds 7: Limb Ataxia ?> 0 = No ataxia 8: Sensation ?> 0 = Normal; no sensory loss 9: Language/aphasia ?> 3 = Mute/global aphasia: no usable speech/auditory comprehension 10: Dysarthria ?> 2 = Mute/anarthric 11: Extinction/inattention ?> 0 = No abnormality CT head: No acute intracranial process. No intracranial hemorrhage, no evidence of infarct. No evidence of acute fracture. This was reviewed and interpreted by myself the emergency room physician. I also reviewed the radiology report. Lab Review: Laboratory results were reviewed and interpreted by myself the emergency room physician. Mild leukocytosis. No anemia. No renal failure. Urinalysis is negative. Drug screen is negative. Liver enzymes are normal. I reviewed the patient's medical record. 1610: Reexamination: Patient is now able to whisper the word yes. He cannot say his name still but does seem to be having some improvements. No headache. No focal motor deficits. No oxygen requirements. By the time the patient was going upstairs he was able to speak multiple words. Consultation: I consulted Dr. Quiroz with neurology. She has seen the patient. She recommended TNKase administration which has been done. She also recommends a CTA of the head and neck to be done upon admission. Consultation: I spoke Dr. Johnson who is on-call for the hospitalist service who agrees to admission. Assessment and plan: Cerebrovascular accident Aphasia Thrombolytic therapy administration ?TNKase given with some improvement in symptoms -I discussed the patient with the hospitalist on-call who is admitting the patient. - Discussed findings and plan with patient. Answered any questions. - All laboratory values were reviewed and interpreted personally by myself, the ER physician - All imaging was reviewed and interpreted personally by myself, the ER physician. - Evaluation and treatment of this problem were appropriate in the emergency setting Lab Data 06/11/25 15:11 06/11/25 15:[address] 06/11/25 14:52 IMPRESSION: 1. No evidence of intracranial hemorrhage or mass effect. 2. Mild sinusitis 3. No acute intracranial findings. Notified Lani Thakkar MD at 06/11/2025 3:02 PM. Laboratory Results WBC 16.44 10^3/uL (3.29-11.43) H 06/11/25 15:11 RBC 4.51 10^6/uL (3.85-5.65) 06/11/25 15:11 Hgb 14.90 g/dL (11.27-16.99) 06/11/25 15:11 Hct 44.0 % (37-53) 06/11/25 15:11 MCV 97.6 fl (82-101) 06/11/25 15:11 MCH 33.0 pg (27-33) 06/11/25 15:11 MCHC 33.9 g/dL (30-55) 06/11/25 15:11 RDW 12.8 % (12.1-15.1) 06/11/25 15:11 Plt Count 192 10^3/cmm (157-399) 06/11/25 15:11 MPV 10.1 fL (7.4-10.4) 06/11/25 15:11 Neut % (Auto) 74.6 % 06/11/25 15:11 Lymph % (Auto) 16.0 % 06/11/25 15:11 Mcintosh % (Auto) 7.9 % 06/11/25 15:11 Eos % (Auto) 0.8 % 06/11/25 15:11 Baso % (Auto) 0.3 % 06/11/25 15:11 Neut # (Auto) 12.26 10^3/uL (1.8-7.7) H 06/11/25 15:11 Lymph # (Auto) 2.6 10^3/uL (0.8-4.8) 06/11/25 15:11 Mcintosh # (Auto) 1.3 10^3/uL (0.2-0.9) H 06/11/25 15:11 Eos # (Auto) 0.1 10^3/uL (0.0-0.8) 06/11/25 15:11 Baso # (Auto) 0.1 10^3/uL (0.0-0.1) 06/11/25 15:11 Nucleated RBC % (auto) 0 % 06/11/25 15:11 Nucleated RBCs # 0.0 /100WBC 06/11/25 15:11 PT 12.50 SECONDS (12.1-14.9) 06/11/25 15:11 INR 0.87 (0.8-1.2) 06/11/25 15:11 APTT 27.4 SECONDS (23.9-36.7) 06/11/25 15:11 Sodium 136 mmol/L (136-145) 06/11/25 15:11 Potassium 4.1 mmol/L (3.5-5.1) 06/11/25 15:11 Chloride 100 mmol/L (98-107) 06/11/25 15:11 Carbon Dioxide 20 mmol/L (22-29) L 06/11/25 15:11 Anion Gap 20.1 (5-19) H 06/11/25 15:11 BUN 25 mg/dL (8-23) H 06/11/25 15:11 Creatinine 0.8 mg/dL (0.7-1.2) 06/11/25 15:11 GFR Calculation Not Reportable 06/11/25 15:11 Glucose 108 mg/dL (65-115) 06/11/25 15:11 POC Glucose 100 mg/dL (70-110) 06/11/25 14:48 Calculated Osmolality 287 mOsm/kg (285-295) 06/11/25 15:11 Calcium 9.4 mg/dL (8.5-10.5) 06/11/25 15:11 Total Bilirubin 0.4 mg/dL (0.15-1.2) 06/11/25 15:11 AST 54 U/L (0-40) H 06/11/25 15:11 ALT 30 U/L (0-41) 06/11/25 15:11 Alkaline Phosphatase 61 U/L (40-130) 06/11/25 15:11 Total Protein 7.4 g/dL (6.6-8.7) 06/11/25 15:11 Albumin 4.5 g/dL (3.5-5.2) 06/11/25 15:11 Globulin 2.9 g/dL (1.3-4.6) 06/11/25 15:11 Urine Color Yellow (Yellow) 06/11/25 15:52 Urine Appearance Clear (CLEAR) 06/11/25 15:52 Urine pH 5.5 (5-7) 06/11/25 15:52 Ur Specific [place] 1.012 (1.005-1.030) 06/11/25 15:52 Urine Protein Negative (Negative) 06/11/25 15:52 Urine Glucose (UA) Negative (Normal) 06/11/25 15:52 Urine Ketones Negative (Negative) 06/11/25 15:52 Urine Blood Trace (Negative) A 06/11/25 15:52 Urine Nitrate Negative (Negative) 06/11/25 15:52 Urine Bilirubin Negative (Negative) 06/11/25 15:52 Urine Urobilinogen 0.2 mg/dL (Negative) 06/11/25 15:52 Ur Leukocyte Esterase Negative (Negative) 06/11/25 15:52 Urine RBC None /hpf (0-2) 06/11/25 15:52 Urine WBC Rare /hpf (0-5) 06/11/25 15:52 Ur Squamous Epith Cells None /hpf (0-5) 06/11/25 15:52 Amorphous Sediment Not Reportable 06/11/25 15:52 Urine Bacteria None /hpf (NONE) 06/11/25 15:52 Urine Mucus None /hpf 06/11/25 15:52 Urine Opiates Screen Negative ng/mL (Negative) 06/11/25 15:52 Ur Barbiturates Screen Negative ng/mL (Negative) 06/11/25 15:52 Ur Phencyclidine Scrn Negative ng/mL (Negative) 06/11/25 15:52 Ur Amphetamines Screen Negative ng/mL (Negative) 06/11/25 15:52 U Benzodiazepines Scrn Negative ng/mL (Negative) 06/11/25 15:52 Urine Cocaine Screen Negative ng/mL (Negative) 06/11/25 15:52 U Marijuana (THC) Screen Negative ng/mL (Negative) 06/11/25 15:52 All radiology interpretation(s) finalized by discharge Discharge Plan Discharge Patient Disposition: Admitted As Inpatient Admit Provider: Jesus Johnson Clinical Impression: Cerebrovascular accident, Aphasia, History of thrombolytic therapy Condition: Stable Coding Level of Care Code ED Auditing Manager for Adair Castillo
--- NOTE | 2025-06-11 14:52 | CT_ITS ---
WS: [id number] CT HEAD TECHNIQUE: Noncontrast CT of the head obtained from the skullbase to the vertex. CLINICAL INFORMATION: Symptoms of acute stroke COMPARISON: MRI 01/12/2023 DLP: [address] scans at [facility] use at least one of these dose optimization techniques: automated exposure control; mA and/or kV adjustment per patient size (includes targeted exams where dose is matched to clinical indication); or iterative reconstruction. FINDINGS: No evidence of intracranial hemorrhage or mass effect. Ventricular system and basal cisterns are patent. Mild small vessel changes with mild parenchymal volume loss. No extra-axial fluid collections. No evidence of mass or mass effect. Vascular calcification. Mucosal thickening and fluid in the ethmoid air cells and frontal ethmoidal recesses. Sphenoid sinuses are well aerated. Mastoid air cells are well aerated. CT/CT head thrombolytic 26821 IMPRESSION: 1. No evidence of intracranial hemorrhage or mass effect. 2. Mild sinusitis 3. No acute intracranial findings. Notified Lani Thakkar MD at 06/11/2025 3:02 PM.
[2025-06-11] MEDS: tenecteplase 50mg Kit (STROKE) 25 MG IVP (15:07)
--- NOTE | 2025-06-11 15:17 | CTR_ITS ---
PROCEDURE INFORMATION: Exam: CTA Head With Contrast, Arteriography Exam date and time: 06/11/2025 4:27 PM Age: 74 years old Clinical indication: Speech disturbance; Dysphasia; Prior surgery; Surgery date: 6+ months; Surgery type: Shrapnel removed from war in head. ; Additional info: Possible stroke TECHNIQUE: Imaging protocol: Computed tomographic angiography of the head with contrast. Exam focused on the arteries. 3D rendering (Not supervised by radiologist): MIP and/or 3D reconstructed images were created by the technologist. Radiation optimization: All CT scans at this facility use at least one of these dose optimization techniques: automated exposure control; mA and/or kV adjustment per patient size (includes targeted exams where dose is matched to clinical indication); or iterative reconstruction. Contrast material: OMNIPAQUE 350; Contrast volume: 100 ml; Contrast route: INTRAVENOUS (IV); COMPARISON: CT head thrombolytic [id number] 06/11/2025 2:51 PM RADIATION DOSE METRICS: Total DLP (mGy-cm): 502.92 FINDINGS: ANTERIOR CIRCULATION: Right internal carotid artery: Mild calcified plaque at the cavernous and supraclinoid segments. Right middle cerebral artery: Unremarkable. Right anterior cerebral artery: Unremarkable. Left internal carotid artery: Mild calcified plaque at the cavernous segment. Left middle cerebral artery: Unremarkable. 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 The remainder of the left VANNA arises from the right VNANA. Left VANNA is otherwise unremarkable. POSTERIOR CIRCULATION: Right vertebral artery: Unremarkable. Left vertebral artery: Unremarkable. Basilar artery: Unremarkable. Right posterior cerebral artery: Unremarkable. Left posterior cerebral artery: Unremarkable. Right posterior communicating artery: Unremarkable. Left posterior communicating artery: The left posterior communicating artery is not visualized. The left posterior communicating artery may be congenitally absent, or may be too small for the resolution capabilities of this study. Brain: No definite mass, mass effect, or midline shift. Cerebral ventricles: No ventriculomegaly. Orbital cavities: Globes and lenses, extraocular muscles, and optic nerves are intact bilaterally. No acute intraorbital abnormality. Mastoid air cells: Moderate amount of fluid in the right and left mastoid air cells. Paranasal sinuses: Mild to moderate mucoperiosteal thickening in the bilateral frontal, maxillary, and ethmoid sinuses. Teeth: Cavitary and periodontal disease in multiple maxillary and mandibular teeth. Bones/joints: Unremarkable. No acute fracture. Soft tissues: No acute abnormality of the extracranial soft tissues. PROCEDURE INFORMATION: Exam: CTA Neck With Contrast Exam date and time: 06/11/2025 4:27 PM Age: 74 years old Clinical indication: Speech disturbance; Dysphasia; Prior surgery; Surgery date: 6+ months; Surgery type: Shrapnel removed from war in head. ; Additional info: Possible stroke TECHNIQUE: Imaging protocol: Computed tomographic angiography of the neck with contrast. Exam focused on the cervical segments of the vasculature. Sagittal and coronal reformatted images were also reviewed. 3D rendering (Not supervised by radiologist): MIP and/or 3D reconstructed images were created by the technologist. Radiation optimization: All CT scans at this facility use at least one of these dose optimization techniques: automated exposure control; mA and/or kV adjustment per patient size (includes targeted exams where dose is matched to clinical indication); or iterative reconstruction. Contrast material: OMNIPAQUE 350; Contrast volume: 100 ml; Contrast route: INTRAVENOUS (IV); COMPARISON: CT head thrombolytic [id number] 06/11/2025 2:51 PM RADIATION DOSE METRICS: Total DLP (mGy-cm): 502.92 FINDINGS: Right common carotid artery: Mild calcified and noncalcified plaque in the mid/distal right CCA. Right internal carotid artery: Unremarkable. Right external carotid artery: Unremarkable. Left common carotid artery: Mild calcified plaque at the origin. Left internal carotid artery: Moderate calcified plaque just after the origin. 52% stenosis using NASCET criteria. Left external carotid artery: Unremarkable. Right vertebral artery: Unremarkable. Left vertebral artery: Unremarkable. Brachiocephalic artery: Unremarkable. Subclavian arteries: Mild calcified plaque bilaterally. Aorta: Aortic: Mild calcified plaque in the visualized aorta. Lymph nodes: No lymphadenopathy. Soft tissues: No acute abnormality of the visualized soft tissues. No radiopaque foreign body. Bones/joints: Multilevel degenerative changes of varying severity in the visualized spine. Lungs: Visualized lungs are clear. Calcified granuloma in the right upper lobe. CT/CT angio headneck* 79910/26091 IMPRESSION: 1. Mild atherosclerotic changes in the intracranial right and left internal carotid arteries. No occlusion, thrombosis, stenosis, extravasation, dissection, or aneurysm. 2. Moderate amount of fluid in the right and left mastoid air cells. 3. Cavitary and periodontal disease in multiple maxillary and mandibular teeth. 4. 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 The remainder of the left VANNA arises from the right VANNA. 5. The left posterior communicating artery is not visualized. The left posterior communicating artery may be congenitally absent, or may be too small for the resolution capabilities of this study. 6. Mild to moderate mucoperiosteal thickening in the bilateral frontal, maxillary, and ethmoid sinuses. 7. Incidental/nonacute findings are listed in the report. IMPRESSION: 1. Mild to moderate atherosclerotic disease, most pronounced in the proximal left internal carotid artery with 52% stenosis using NASCET criteria. No occlusion, thrombosis, extravasation, dissection, or aneurysm. 2. Incidental/nonacute findings are listed in the report. REFERENCES: NASCET CRITERIA. The degree of stenosis in the cervical segment of the internal carotid artery is based on NASCET criteria. Normal is no stenosis. Mild is less than 50% stenosis. Moderate is 50-69% stenosis. Severe is 70% to 99% stenosis. Total occlusion is no detectable patent lumen.
--- NOTE | 2025-06-11 15:22 | ECG_ITS ---
[facility] 2025-[facility]11 Pat Name: Callum Anderson Department: Room: Gender: Male [employer] Architect: : [id number] Requested By: Lani Bailey Order Number: [id number] Bashir MD: Timo Floyd M.D. Measurements Intervals [place] Rate: 99 P: 2 NC: 183 QRS: 31 QRSD: 91 T: 17 QT: 336 QTc: 432 Interpretive Statements SINUS RHYTHM No previous ECG available for comparison Electronically Signed On 06-11-2025 23:49:04 CDT by Timo Floyd M.D. [email or web address]
[2025-06-11 15:32] LABS: Hematocrit 44.0 % (37-53); Hemoglobin 14.90 g/dL (11.27-16.99); Mean Corpuscular HGB Conc 33.9 g/dL (30-55); Mean Corpuscular Hemoglobin 33.0 pg (27-33); Mean Corpuscular Volume 97.6 fl (82-101); Nucleated Red Blood Cells % 0 %; Platelet Count 192 10^3/cmm (157-399); Red Blood Count 4.51 10^6/uL (3.85-5.65); White Blood Count 16.44 10^3/uL (3.29-11.43)
[2025-06-11 15:45] LABS: Alanine Aminotransferase 30 U/L (0-41); Albumin Level 4.5 g/dL (3.5-5.2); Alkaline Phosphatase 61 U/L (40-130); Anion Gap 20.1 (5-19); Aspartate Amino Transferase 54 U/L (0-40); Blood Urea Nitrogen 25 mg/dL (8-23); Calcium 9.4 mg/dL (8.5-10.5); Carbon Dioxide 20 mmol/L (22-29); Chloride 100 mmol/L (98-107); Globulin 2.9 g/dL (1.3-4.6); Glucose 108 mg/dL (65-115); Osmolality Calculated 287 mOsm/kg (285-295); Potassium 4.1 mmol/L (3.5-5.1); Sodium 136 mmol/L (136-145); Total Protein 7.4 g/dL (6.6-8.7)
[2025-06-11 16:04] LABS: Glucose Urine UA Negative (Normal); Nitrate Urine Negative (Negative); Specific Gravity, Urine 1.012 (1.005-1.030)
[2025-06-11 16:04] LABS: INR 0.87 (0.8-1.2); Partial Thromboplastin Time 27.4 SECONDS (23.9-36.7); Prothrombin Time 12.50 SECONDS (12.1-14.9)
[2025-06-11 16:11] LABS: PCP Screen Urine Negative (Negative)
[2025-06-11] MEDS: iohexol 350 mg/mL 500 mL Btl (per mL) IV (16:33)
--- NOTE | 2025-06-11 17:19 | PM.HP ---
Providers/Chief Complaint Admitting Physician: Jesus Johnson MD Primary Care Provider: MIGUEL ANGEL Quiroz Chief Complaint: AMS History of Present Illness Callum Anderson is a 74 year old male with past medical history of Parkinson's, TIA, type 2 diabetes mellitus, Hypertension, obesity presents to the ER today because of confusion, difficulty in finding words which started at around noon. Patient presented to the hospital at 2:44 PM. He was evaluated in the ER and decision was made to treat him with tenecteplase. When seen in the ICU patient seems to be back to his baseline. Denies any nausea, vomiting, headache, dizziness. Review of Systems General: Reports: 10 or more systems reviewed and unremarkable except in HPI and below Const: Denies: fever(s), chills, body aches, change in appetite, change in weight, malaise, night sweats, diaphoresis, change in sleep pattern, daytime sleepiness or snoring Eyes: Denies: change in vision, blurry vision, photophobia, eye discomfort or eye discharge ENMT: Denies: throat pain, enlarged tonsils, hoarseness, mouth pain, oral sores, dry mouth, tinnitus, nasal congestion or post nasal drip Card: Denies: chest pain, palpitations, irregular heart rhythm, edema, swelling of feet/ankles, lightheadedness, syncope, pre-syncope, dyspnea on exertion, orthopnea, leg pain with exertion or acrocyanosis Resp: Denies: dyspnea, productive cough, non-productive cough, wheezing, stridor, pain on inspiration, change in phlegm color, hemoptysis or chest congestion GI: Denies: abdominal pain, nausea, vomiting, hematemesis, coffee ground emesis, dysphagia, heartburn, diarrhea, constipation, bloating, GI cramping, change in bowel habits, pain on defecation, hematochezia or melena : Denies: flank pain, difficulty urinating, dysuria, urinary frequency, urinary urgency, urinary hesitancy, urinary dribbling, difficulty starting urination, change in urine stream, nocturia or hematuria Musc: Denies: neck pain, back pain, extremity pain, joint pain, joint swelling, joint redness, joint stiffness or limited range of motion Neuro: Denies: headache(s), numbness in extremities, weakness in extremities, sensory changes, lack of coordination, difficulty walking, frequent falls, dizziness, vertigo, confusion, Slurred speech present, difficulty communicating thoughts or seizure-like activity Psych: Denies: anxiety, depression, mood swings, panic attacks, hopelessness or irritability Endo: Denies: polyuria, polydipsia, tired all the time, cold intolerance, excessive sweating, flushing or heat intolerance Catalino/Lymph: Denies: easy bruising or easy bleeding All/Imm: Denies: tongue swelling, facial swelling or acute wheezing Medications/Allergies Home Medications ?Medication ?Instructions ?Recorded ?Confirmed ?Last Taken ?Type omeprazole 40 mg capsule,delayed 40 mg PO DAILY 03/02/21 06/05/25 Unknown History release magnesium oxide 400 mg PO DAILY 04/11/23 06/05/25 Unknown History metformin 500 mg tablet 1,000 mg PO BID 04/11/23 06/05/25 Unknown History omega-3 fatty acids [Fish Oil 1,000 mg PO DAILY 04/11/23 06/05/25 Unknown History Concentrate] potassium chloride 20 mEq 20 meq PO DAILY 04/11/23 06/05/25 Unknown History tablet,extended release spironolactone 25 mg tablet 25 mg PO DAILY #90 tabs 04/11/23 06/05/25 Unknown Rx acetaminophen 500 mg tablet 1,000 mg PO BID 08/16/23 06/05/25 Unknown History (Tylenol Extra Strength) diabetic shoes with 3 inserts #1 ea 08/18/23 06/05/25 Unknown Rx diabetic shoes with 3 inserts #1 ea 12/19/23 06/05/25 Unknown Rx diabetic shoes with 3 inserts #1 ea 05/01/24 06/05/25 Unknown Rx amlodipine 10 mg tablet (Norvasc) 10 mg PO DAILY 11/07/24 06/05/25 Unknown History losartan 50 mg tablet 50 mg PO DAILY 11/13/24 06/05/25 Unknown History rosuvastatin 20 mg tablet 20 mg PO DAILY 11/13/24 06/05/25 Unknown History sertraline 50 mg tablet 50 mg PO DAILY 11/13/24 06/05/25 Unknown History carbidopa 25 mg-levodopa 100 mg 1 tab PO QID 90 days #360 tabs 02/18/25 06/05/25 Unknown Rx tablet (Sinemet) cholecalciferol (vitamin D3) 625 50,000 unit PO .weekly #14 caps 02/18/25 06/05/25 Unknown Rx mcg (25,000 unit) capsule Allergies Allergy/AdvReac Type Severity Reaction Status Date / Time No Known Allergies Allergy Verified 06/05/25 10:51 PFSH Acute PFSH: Medical History (Updated 06/11/25 @ 18:18 by Rosita Quiroz MD) Osteoarthritis (arthritis due to wear and tear of joints) Post herpetic neuralgia Raised antibody titer Muscle pain History of juvenile rheumatoid arthritis TIA (transient ischemic attack) History of colon cancer Diabetes mellitus Arthritis Obesity GERD (gastroesophageal reflux disease) HTN (hypertension) Family History Brother CAD (coronary artery disease) Mother CAD (coronary artery disease) Sister CAD (coronary artery disease) Denies family history of Diabetes Stroke Social History Smoking and tobacco/nicotine status: never used tobacco/nicotine Alcohol intake: current Alcohol intake frequency: holidays/special occasions only Substance/Drug Use: never Vitals/I&O/Wt Last Vital Signs Temp 98.8 F 06/11/25 14:39 Pulse 96 06/11/25 16:56 Resp 25 H 06/11/25 16:40 BP 153/94 06/11/25 16:56 Pulse Ox 94 06/11/25 16:56 O2 Del Method Room Air 06/11/25 14:39 Weight last 48 hrs Weight 100.698 kg Physical Exam Narrative: General: No acute distress, AO x3, pleasant HEENT: PERRLA, pupils bilaterally equal and reactive Chest: Normal vesicular breath sounds, no added sounds, equal good air entry bilaterally CVS: S1-S2 regular, no murmurs, no tachycardia, no gallops, no rubs Abdomen: Soft, nontender, no organomegaly, bowel sounds present Neuro: No focal deficits, no facial deformity, AO x3, power 5/5 in all limbs Data 06/11/25 15:11 06/11/25 15:11 A&P Assessment and plan 1. Cerebrovascular accident: Post Tpa. Neuro checks Q4h Repeat CT in 24 hrs to r/o ICH Goal BP less than 180/105 mmhg Check Echo, A1c, lipid panel ASA 24 hrs post Tpa, start atorva 40 mh QHS PT/OT/sepeech eval. Advance diet accordingly. 2. Aphasia: 3. History of thrombolytic therapy: 4. HTN (hypertension): Holld Anti-htn meds 5. Acute on chronic heart failure with preserved ejection fraction (HFpEF): Monitor for fluid overload 6. Parkinson disease, symptomatic: C/w Home Carbidopa/levodopa 7. Gait instability: Plan: Full code Scd for DVT PPx Protonix for PUD PPx PDMP PDMP Reviewed: Not Reviewed Attestations Medical Necessity Statement*: Admit for more than stroke post Tpa care Critical Care Time: The high probability of a clinically significant, sudden or life threatening deterioration of the patient's [Neurology] system(s) required my full and direct attention, intervention and personal management. The critical care time is as shown. This time is in addition to time spent performing any reported procedures but includes the following: [x] Data and vital sign review and interpretation [x] Patient assessment, examination and intervention [x] Documentation [x] Medication orders and management Critical Care Time (min): 60 Coding Level of Care Code Critical Care >/= 30 minutes Critical care time (in minutes): 60 The high probability of a clinically significant, sudden or life threatening deterioration, as referenced in this documentation, required my full and direct attention, intervention and personal management. The critical care time shown is in addition to time spent performing any reported separately billable procedures and includes the following: [x] Data and vital sign review and interpretation [x] Patient assessment, examination and intervention [x] Medication orders and management [x] Patient/Family updates as able [x] Care Coordination and Documentation. Diagnoses Cerebrovascular accident I63.9 Aphasia R47.01 History of thrombolytic therapy Z92.89 HTN (hypertension) I10 Acute on chronic heart failure with preserved ejection fraction (HFpEF) I50.33 Parkinson disease, symptomatic G20.A1 Gait instability R26.81
[2025-06-11 17:23] LABS: Add Urine Microscopic? YES
--- NOTE | 2025-06-11 18:03 | PM.SAN ---
Stroke Alert Activation ED Arrival Date: 06/11/25 ED Arrival Time: 14:39 ED Physican at Bedside: 14:44 Last Known Normal/at Baseline: 2-3 hours ago Other Last Known Well Infomation: His was somewhat of a difficult historian and the patient was unable to provide any history. He has Parkinson's disease and was having more trouble than usual today with tremor and feeling weak. He agreed to go to the clinic to be checked out and his put him in the car and they started driving here. He walked to the car and he was talking to her when they got into the car at noon. By the time she arrived at the emergency department he could not speak and he was not following commands. He was getting somewhat erratic hand signals that from what I could gather or more and attempt to give any answer but not the exact answer. The study abroad coordinator thought he whispered his name to her but he did not do that under my exam. Dr. Thakkar called me and asked me to see the patient because he thought he was having an acute left middle cerebral artery stroke and was a thrombolytic candidate. I agreed and came directly to the emergency department and evaluated the patient. I found him to have global aphasia. He had preservation of ability to follow axial commands but he did not follow any appendicular commands. Typical for patients with receptive aphasia, when asked to show me his thumb he would move his fingers around in the right hand but he would not show me his thumb. His findings were consistent with left middle cerebral artery stroke. He did not have motor symptoms. I could not determine whether he had a visual field cut because he was constantly blinking. Stroke Alert Activated by: Triage Stroke Alert Activation Time: 14:47 Stroke MD @ Bedside Time: 14:55 NIH Stroke Scale Time: 15:28 NIH stroke score NIHSS: Level Of Consciousness - 1a: 3 Level Of Consciousness Questions - 1b: Neither Correct Level Of Consciousness Commands - 1c: Neither Correct Best Gaze - 2: Normal Visual Dietrich - 3: No Visual Loss (Unable to determine) Facial Palsy - 4: Normal Motor Arm Right - 5: No Drift Motor Arm Left - 5: No Drift Motor Leg Right - 6: Effort Against [place] Motor Leg Left - 6: Effort Against [place] Limb Ataxia - 7: Absent Sensory - 8: Normal Best Language - 9: Mute; Global Aphasia Dysarthia - 10: Normal Extinction And Inattention - 11: 0 Score: Total Score: 14 Stroke Alert Data/Treatment Time to CT of Head: 14:52 CT Results Time: 15:02 CT Impression: Normal Stroke Risk Factors: coronary artery disease, obesity and diabetes mellitus tPA Started Time: tPA Started - Time: 15:27 tPA Admin Prior to Arrival: No Patient & Family Educated on: Risk Factors, Treament Plan, Stroke Education Booklet and tPA Risks/Benefits Other Patient & Family Education: The patient could not participate but his asked questions and we went over the stroke book with her. I went over the location of his stroke on the brain cartoon and took time to answer her questions. Standardized Stroke Orders Used: Yes Other Information: Although his stroke scale score was not high, he was globally aphasic on arrival and thrombolytic therapy was therefore indicated. I talked with Dr. Thakkar, reviewed the patient's history and physical findings and asked him to go ahead with TNK. I arrived just after the bolus was given. He should have a CTA and in fact that has been performed and shows atherosclerosis in the anterior circulation but no sign of an intracranial embolus or large vessel occlusion and only about 50% stenosis in the left internal carotid artery. Critical Care Time Critical Care Time: 30 - 74 mins A&P Assessment and plan 1. Left acute arterial ischemic stroke, MCA (middle cerebral artery): Acute left middle cerebral artery stroke with receptive aphasia and expressive aphasia. This is probably posterior branch left middle cerebral artery stroke even though there is no evidence of an embolus by CTA. His prognosis is good because he was rapidly treated with TNK. 2. Parkinson disease, symptomatic: Multiple findings on exam of Parkinson's disease including tremor. He is having diffuse myoclonic jerks and was suffering malaise prior to onset of his symptoms so he may have an underlying infection. PDMP PDMP Reviewed: Not Reviewed Coding Level of Care Code Acute Code for [facility] Diagnoses Left acute arterial ischemic stroke, MCA (middle cerebral artery) I63.512 Parkinson disease, symptomatic G20.A1
[2025-06-11] MEDS: pantoprazole 40 mg SDV IVP (18:11)
[2025-06-11 18:25] LABS: Iron 82 ug/dL (59-158); Thyroid Stimulating Hormone 1.20 uIU/mL (0.27-4.20); Total Iron Binding Capacity 268 mcg/dl; Unsaturated Iron Binding 186 ug/dL (112-347); Vitamin B12 450 pg/mL (232-1245)
[2025-06-11 18:26] LABS: Alcohol Level < 10 mg/dL (0-10)
[2025-06-11] MEDS: carbidopa-levodopa 25-100mg Tablet 1 EACH PO (22:06)
[2025-06-12] VITALS (49 sets, daily range): BP systolic 110–181; BP diastolic 68–116; PULSE 70–94; RESP 16–34; TEMP 36.4–37.2; O2SAT 91–98
[2025-06-12] MEDS: carbidopa-levodopa 25-100mg Tablet 1 EACH PO ×4 (05:15→22:13)
--- NOTE | 2025-06-12 07:47 | XR_ITS ---
WS: [id number] Portable AP upright chest, 06/12/2025 Clinical Data: CHFe Comparison: None. Findings: No nodules, masses or effusions are seen. The heart is normal. The pulmonary vascularity is not increased. No pneumonia or pneumothorax is seen. The aortic arch shows tortuosity. Monitor leads are on the chest wall. XR/XR chest 1V portable [id number] Impression: Atherosclerosis.
--- NOTE | 2025-06-12 07:48 | PC.PHAR ---
[facility] is [facility] 06/12/25 7:50am
--- NOTE | 2025-06-12 08:40 | PC.PHAR ---
Pt unable to verify his medications. Med rec completed by [facility] current medication list. 06/12/25
--- NOTE | 2025-06-12 11:26 | PC.NURSE ---
flight operation coordinator rounds at 0800- I gave patient's a stroke education book in ED and we went through it together. Patient rounds- patient has no deficits from stroke at this time. Patient is oriented and able to speak. Moves all extremities and follows all commands.
--- NOTE | 2025-06-12 11:48 | P.PN_ITS ---
Subjective 2 Subjective: He received tPA yesterday. He presents today with global aphasia. His speech is back to baseline. He does have some dysarthria from his Parkinson's disease. He also feels like his motor strength is back to his baseline. Repeat CT head is scheduled for this afternoon. 14 point review of system otherwise nega tive. Vitals/I&O/Wt Last Vital Signs Temp 97.6 F 06/12/25 04:00 Pulse 85 06/12/25 10:10 Resp 18 06/12/25 10:00 BP 174/116 06/12/25 10:00 Pulse Ox 97 06/12/25 10:10 O2 Del Method Room Air 06/12/25 10:10 06/11/25 06/12/25 06/12/25 22:59 06:59 14:59 Intake Total 480 / 480 350 / 350 Output Total 475 / 475 650 / 1125 Balance 5 / 5 -650 / -645 350 / 350 Weight last 48 hrs Weight 103 kg Weight 103 kg Weight 100.698 kg Weight 105.233 kg Physical Exam 2 Const: COMMON NORMALS: no acute distress and patient oriented x3 GENERAL APPEARANCE: cooperative ORIENTATION/CONSCIOUSNESS: Yes awake HENMT: COMMON NORMALS: normocephalic, atraumatic and oropharynx normal HEAD & SCALP: normocephalic and atraumatic Eye: COMMON NORMALS: Equal, round and reactive pupils present and EOMs intact bilaterally PUPIL: Yes Equal, round and reactive pupils present Neck/C-Spine: COMMON NORMALS: supple and no JVD Resp: COMMON NORMALS: normal respiratory effort and clear to auscultation bilaterally AUSCULTATION: clear to auscultation bilaterally Cardio: COMMON NORMALS: no JVD, regular rhythm, S1 normal heart sound present, S2 normal heart sound present and No murmurs present (Cardio) RHYTHM: regular rhythm HEART SOUNDS: S1 normal heart sound present and S2 normal heart sound present GI: COMMON NORMALS: Normal to inspection, nondistended, normoactive bowel sounds present, Soft to palpation and non-tender PALPATION: Yes Soft to palpation : COMMON NORMALS: Yes no CVA tenderness BLADDER/KIDNEY EXAM: Yes no CVA tenderness Back/Pelvis: COMMON NORMALS: no CVA tenderness Extremity: COMMON NORMALS: no joint enlargement and no pedal edema Neuro: COMMON NORMALS: patient oriented x3, moves all extremities, no sensory deficits noted and deep tendon reflexes 2+ bilaterally MOTOR EXAM: Tremors during motor activity present OTHER: Mild dysarthria were chronic per patient. No facial asymmetry noted. Motor strength 5/5 bilateral upper extremities, 4/5 bilateral lower extremities. Sensation grossly intact. Psych: COMMON NORMALS: Normal thought process present and denies hallucinations THOUGHT PROCESS: Normal thought process present Skin: COMMON NORMALS: no rashes or lesions noted GENERAL SKIN EXAM: no rashes or lesions noted Data 06/11/25 15:11 06/11/25 15:11 A&P Assessment and plan 1. Cerebrovascular accident: Post Tpa yesterday. Neuro checks Q4h Repeat CT this afternoon to rule out intracranial hemorrhage Goal BP less than 180/105 mmhg Echo with bubble study Lipid panel and A1c ASA 24 hrs post Tpa, started atorva 40 mh QHS PT/OT/sepeech eval. Advance diet accordingly. 2. Aphasia: He has global aphasia and received tPA. This has resolved 3. History of thrombolytic therapy: 4. HTN (hypertension): Goal blood pressure less than 180/105 mmHg 5. Parkinson disease, symptomatic: C/w Home Carbidopa/levodopa 6. Gait instability: 7. Chronic diastolic (congestive) heart failure: Monitor I's and O's and daily weights Plan: Full code Scd for DVT PPx Protonix for PUD PPx PDMP PDMP Reviewed: Not Reviewed Attestations 2 Medical Necessity Statement*: He needs continued hospitalization for stroke workup including telemetry monitoring, neurochecks, repeat CT imaging, monitoring blood pressure. Coding Level of Care Code Acute Code for [facility] Diagnoses Cerebrovascular accident I63.9 Aphasia R47.01 History of thrombolytic therapy Z92.89 HTN (hypertension) I10 Parkinson disease, symptomatic G20.A1 Gait instability R26.81 Chronic diastolic (congestive) heart failure I50.32
[2025-06-12 15:43] LABS: Hematocrit 42.4 % (37-53); Hemoglobin 14.20 g/dL (11.27-16.99); Mean Corpuscular HGB Conc 33.5 g/dL (30-55); Mean Corpuscular Hemoglobin 32.9 pg (27-33); Mean Corpuscular Volume 98.4 fl (82-101); Nucleated Red Blood Cells % 0 %; Platelet Count 189 10^3/cmm (157-399); Red Blood Count 4.31 10^6/uL (3.85-5.65); White Blood Count 9.15 10^3/uL (3.29-11.43)
[2025-06-12 15:45] LABS: ABG PCO2 36.3 mmHg (35-45); ABG PH Result 7.44 (7.35-7.45); Arterial Blood Gas Hematocrit 46.2 % (42-52); Blood Gas Allen Test Pos; Blood Gas Operator Identificat GD; Blood Gas Sample Site Radial, right; Blood Gas Sample Type Arterial; HCO3 ABG 24.5 mmol/L (22-26); PO2 ABG 70.2 mmHg (80.0-100.0); PO2 FiO2 Ratio Arterial Blood 334
--- NOTE | 2025-06-12 16:00 | CTR_ITS ---
PROCEDURE INFORMATION: Exam: CT Head Without Contrast Exam date and time: 06/12/2025 4:07 PM Age: 74 years old Clinical indication: Other: Acute sroke follow up; Acute stroke follow up TECHNIQUE: Imaging protocol: Computed tomography of the head without contrast. Radiation optimization: All CT scans at this facility use at least one of these dose optimization techniques: automated exposure control; mA and/or kV adjustment per patient size (includes targeted exams where dose is matched to clinical indication); or iterative reconstruction. COMPARISON: CT angio headneck* [id number] 06/11/2025 4:27 PM RADIATION DOSE METRICS: Total DLP (mGy-cm): 1056.58 FINDINGS: Brain: Normal. No hemorrhage. Unremarkable white matter. No mass effect. Cerebral ventricles: No ventriculomegaly. Paranasal sinuses: Visualized sinuses are unremarkable. No fluid levels. Mastoid air cells: Minimal partial opacification of a few right mastoid air cells inferiorly. Bones: Unremarkable. No acute fracture. Soft tissues: Unremarkable. CT/CT head wo con* [id number] IMPRESSION: No acute findings.
[2025-06-12 16:05] LABS: Lactate (Lactic Acid level) 1.6 mmol/L (0.5-2.2)
[2025-06-12 16:20] LABS: Estmated Average Glucose 134; Hemoglobin A1C 6.3 % (4.0-6.0)
[2025-06-12] MEDS: pantoprazole 40 mg SDV IVP (16:46)
[2025-06-12 17:01] LABS: Alanine Aminotransferase 32 U/L (0-41); Albumin Level 4.3 g/dL (3.5-5.2); Alkaline Phosphatase 50 U/L (40-130); Anion Gap 18.3 (5-19); Aspartate Amino Transferase 32 U/L (0-40); Blood Urea Nitrogen 18 mg/dL (8-23); Calcium 9.4 mg/dL (8.5-10.5); Carbon Dioxide 23 mmol/L (22-29); Chloride 103 mmol/L (98-107); Creatinine Clr Calc Pharmacy 86.5764; Globulin 3.1 g/dL (1.3-4.6); Glucose 132 mg/dL (65-115); Osmolality Calculated 294 mOsm/kg (285-295); Potassium 4.3 mmol/L (3.5-5.1); Sodium 140 mmol/L (136-145); Total Protein 7.4 g/dL (6.6-8.7)
--- NOTE | 2025-06-12 17:22 | USCV_ITS ---
Callum Anderson Age: 74 Gender: M : 1950 Exam Date: 06/12/2025 11:58 Ordering Phys: Jesus Johnson MD Technologist: Exam Location: [facility] [place] Indication: cp sob BP: 153 / 116 HR: 121 Rhythm: Sinus Technical Quality: Adequate MEASUREMENTS (Male / Female) Normal Values 2D ECHO LV Diastolic Diameter PLAX 2.9 cm 4.2 - 5.9 / 3.9 - 5.3 cm IVS Diastolic Thickness 1.1 cm 0.6 - 1.0 / 0.6 - 0.9 cm IVS Systolic Thickness 1.6 cm LVPW Diastolic Thickness 1.1 cm 0.6 - 1.0 / 0.6 - 0.9 cm LVPW Systolic Thickness 1.6 cm LVOT Diameter 2.1 cm LV Ejection Fraction 2D Teich 70.2 % LV Ejection Fraction MOD 4C 57.3 % LV Ejection Fraction MOD 2C 71.9 % LV Ejection Fraction 2C AL 71.6 % LA Diameter 2.8 cm RA Systolic Volume 4C AL 29.3 ml RA Systolic Volume 4C MOD 30.2 ml Aorta at Sinotubular Diameter 2.8 cm M-MODE LA Ao Ratio MM 1.4 AV Cusp Separation MM 1.7 cm DOPPLER AV Peak Velocity 155.0 cm/s LVOT Peak Velocity 129.0 cm/s AV Area Cont Eq vti 3.5 cm squared AV Area Cont Eq pk 2.8 cm squared MV Peak Velocity 118.0 cm/s MV Area PHT 3.6 cm squared Mitral E to A Ratio 0.6 TV Peak E Velocity 74.0 cm/s PV Peak Velocity 107.0 cm/s FINDINGS Left Ventricle Normal left ventricular size, systolic function and wall thickness, with no regional wall motion abnormalities. Left ventricular ejection fraction is estimated at 60 %. Grade I/IV diastolic dysfunction (abnormal relaxation filling pattern), normal to mildly elevated filling pressures. Right Ventricle Normal right ventricular size and systolic function. Right Atrium Normal right atrial size. Left Atrium Normal left atrial size. IA Septum Normal appearance of the interatrial septum. Mitral Valve Mildly thickened mitral valve. No mitral valve stenosis. Trace mitral valve regurgitation. Aortic Valve Moderate aortic valve calcification. No aortic valve stenosis. Trace aortic valve regurgitation. Tricuspid Valve Normal tricuspid valve structure. No tricuspid valve stenosis or regurgitation. Normal pulmonary pressure. Pulmonic Valve Normal pulmonic valve structure. No pulmonic valve stenosis or regurgitation. Pericardium No pericardial effusion. Aorta Normal diameter of the aortic root and ascending thoracic aorta. IVC Normal IVC diameter. CONCLUSIONS Normal left ventricular size, systolic function and wall thickness, with no regional wall motion abnormalities. Left ventricular ejection fraction is estimated at 60 %. Grade I/IV diastolic dysfunction (abnormal relaxation filling pattern), normal to mildly elevated filling pressures. No significant valvular abnormalities. There is no pericardial effusion. Right atrial pressure is around 5 mm of mercury. Linda Phoenix MD (Electronically Signed) Final Date: 12 June 2025 14:15 S
[2025-06-12 18:45] LABS: Cholesterol 180 mg/dL (0-200); HDL Cholesterol 40 mg/dL (60-100); Magnesium 2.2 mg/dL (1.7-2.3); Triglycerides 172 mg/dL (0-150)
[2025-06-12 18:56] LABS: NT Pro B Type Natriuretic Pept 37 pg/mL (0-450); Procalcitonin 0.15 ng/mL (0-0.5)
[2025-06-13] VITALS (7 sets, daily range): BP systolic 101–155; BP diastolic 78–94; PULSE 69–88; RESP 15–29; TEMP 36.5–36.8; O2SAT 92–96; BMI 38.2
[2025-06-13 04:16] LABS: Hematocrit 40.2 % (37-53); Hemoglobin 13.60 g/dL (11.27-16.99); Mean Corpuscular HGB Conc 33.8 g/dL (30-55); Mean Corpuscular Hemoglobin 33.2 pg (27-33); Mean Corpuscular Volume 98.0 fl (82-101); Nucleated Red Blood Cells % 0 %; Platelet Count 167 10^3/cmm (157-399); Red Blood Count 4.10 10^6/uL (3.85-5.65); White Blood Count 9.49 10^3/uL (3.29-11.43)
[2025-06-13 04:38] LABS: Magnesium 2.3 mg/dL (1.7-2.3)
[2025-06-13 04:39] LABS: Alanine Aminotransferase 9 U/L (0-41); Albumin Level 3.9 g/dL (3.5-5.2); Alkaline Phosphatase 51 U/L (40-130); Anion Gap 14.9 (5-19); Aspartate Amino Transferase 29 U/L (0-40); Blood Urea Nitrogen 17 mg/dL (8-23); Calcium 9.2 mg/dL (8.5-10.5); Carbon Dioxide 26 mmol/L (22-29); Chloride 104 mmol/L (98-107); Creatinine Clr Calc Pharmacy 85.6601; Globulin 3.1 g/dL (1.3-4.6); Glucose 120 mg/dL (65-115); Osmolality Calculated 295 mOsm/kg (285-295); Potassium 3.9 mmol/L (3.5-5.1); Sodium 141 mmol/L (136-145); Total Protein 7.0 g/dL (6.6-8.7)
[2025-06-13] MEDS: carbidopa-levodopa 25-100mg Tablet 1 EACH PO ×2 (04:46→10:16)
--- NOTE | 2025-06-13 09:54 | P.DS_ITS ---
Discharge Providers Date of Admission: 06/11/25 16:24 Date of Discharge: June 13, 2025 Attending Provider at Admission: Jesus Johnson MD Attending Provider at Discharge: Gerri Wright MD Consults: Consult to neurology Primary Care Provider: MIGUEL ANGEL Quiroz Diagnoses at Discharge Discharge Diagnosis 1. Cerebrovascular accident: 2. Aphasia: 3. History of thrombolytic therapy: 4. HTN (hypertension): 5. Parkinson disease, symptomatic: 6. Gait instability: 7. Chronic diastolic (congestive) heart failure: Reason for Visit Reason for Visit: AMS Brief History: This is a 74-year-old male with Parkinson's disease, history of TIA, type 2 diabetes mellitus, hypertension, obesity who presented with confusion and global aphasia. He had had increased tremors and generalized weakness in the admission. He receptive and expressive aphasia when he arrived to the ED. 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 He was treated with TNK. Hospital Course Hospital Course He had resolution of his aphasia with TNK. He is back to his baseline neurological status. He did have mild communication deficit at baseline due to his Parkinson's disease. Surveillance CTA did not show any acute hemorrhage. He was started on aspirin 81 mg daily. He has been taking rosuvastatin 20 mg nightly. Patient to follow-up with neurology on discharge. Physical Exam Const: COMMON NORMALS: no acute distress and patient oriented x3 GENERAL APPEARANCE: cooperative ORIENTATION/CONSCIOUSNESS: Yes awake HENMT: COMMON NORMALS: normocephalic, atraumatic and oropharynx normal HEAD & SCALP: normocephalic and atraumatic Eye: COMMON NORMALS: Equal, round and reactive pupils present and EOMs intact bilaterally PUPIL: Yes Equal, round and reactive pupils present Neck/C-Spine: COMMON NORMALS: supple and no JVD Resp: COMMON NORMALS: normal respiratory effort and clear to auscultation bilaterally AUSCULTATION: clear to auscultation bilaterally Cardio: COMMON NORMALS: no JVD, regular rhythm, S1 normal heart sound present, S2 normal heart sound present and No murmurs present (Cardio) RHYTHM: regular rhythm HEART SOUNDS: S1 normal heart sound present and S2 normal heart sound present GI: COMMON NORMALS: Normal to inspection, nondistended, normoactive bowel sounds present, Soft to palpation and non-tender PALPATION: Yes Soft to palpation : COMMON NORMALS: Yes no CVA tenderness BLADDER/KIDNEY EXAM: Yes no CVA tenderness Back/Pelvis: COMMON NORMALS: no CVA tenderness Extremity: COMMON NORMALS: no joint enlargement and no pedal edema Neuro: COMMON NORMALS: patient oriented x3, moves all extremities, no sensory deficits noted and deep tendon reflexes 2+ bilaterally MOTOR EXAM: Tremors during motor activity present OTHER: Mild dysarthria were chronic per patient. No facial asymmetry noted. Motor strength 5/5 bilateral upper extremities, 4/5 bilateral lower extremities. Sensation grossly intact. Psych: COMMON NORMALS: Normal thought process present and denies hallucinations THOUGHT PROCESS: Normal thought process present Skin: COMMON NORMALS: no rashes or lesions noted GENERAL SKIN EXAM: no rashes or lesions noted Discharge Data Studies Completed and Pending Completed Studies During Hospitalization Category Date Time Status CT head thrombolytic 18842 Stat Cat Scan 06/11/25 14:[address] head wo con* [id number] Routine Cat Scan 06/12/25 16:00 Completed CTA head neck [CT angio headneck* 97272/15064] Stat Cat Scan 06/11/25 15:17 Completed CXRP [XR chest 1V portable [id number]] Routine Exams 06/12/25 07:47 Completed CV. echo complete* [id number] Routine Ultrasound 06/12/25 17:22 Completed Pending at discharge Category Date Time Status Complete Blood Count w/Auto AM LABS Lab 06/14/25 04:00 Ordered Comprehensive Metabolic Panel AM LABS Lab 06/14/25 04:00 Ordered MAG [Magnesium] AM LABS Lab 06/14/25 04:00 Ordered Phosphorus AM LABS Lab 06/14/25 04:00 Ordered Radiology Impressions Head/Neck CTA 06/11/25 15:17 IMPRESSION: 1. Mild atherosclerotic changes in the intracranial right and left internal carotid arteries. No occlusion, thrombosis, stenosis, extravasation, dissection, or aneurysm. 2. Moderate amount of fluid in the right and left mastoid air cells. 3. Cavitary and periodontal disease in multiple maxillary and mandibular teeth. 4. 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 The remainder of the left VANNA arises from the right VANNA. 5. The left posterior communicating artery is not visualized. The left posterior communicating artery may be congenitally absent, or may be too small for the resolution capabilities of this study. 6. Mild to moderate mucoperiosteal thickening in the bilateral frontal, maxillary, and ethmoid sinuses. 7. Incidental/nonacute findings are listed in the report. IMPRESSION: 1. Mild to moderate atherosclerotic disease, most pronounced in the proximal left internal carotid artery with 52% stenosis using NASCET criteria. No occlusion, thrombosis, extravasation, dissection, or aneurysm. 2. Incidental/nonacute findings are listed in the report. REFERENCES: NASCET CRITERIA. The degree of stenosis in the cervical segment of the internal carotid artery is based on NASCET criteria. Normal is no stenosis. Mild is less than 50% stenosis. Moderate is 50-69% stenosis. Severe is 70% to 99% stenosis. Total occlusion is no detectable patent lumen. Chest X-Ray 06/12/25 07:47 Impression: Atherosclerosis. Head CT 06/12/25 16:00 IMPRESSION: No acute findings. Laboratory Results WBC 9.49 10^3/uL (3.29-11.43) 06/13/25 03:30 RBC 4.10 10^6/uL (3.85-5.65) 06/13/25 03:30 Hgb 13.60 g/dL (11.27-16.99) 06/13/25 03:30 Hct 40.2 % (37-53) 06/13/25 03:30 MCV 98.0 fl (82-101) 06/13/25 03:30 MCH 33.2 pg (27-33) H 06/13/25 03:30 MCHC 33.8 g/dL (30-55) 06/13/25 03:30 RDW 12.7 % (12.1-15.1) 06/13/25 03:30 Plt Count 167 10^3/cmm (157-399) 06/13/25 03:30 MPV 11.0 fL (7.4-10.4) H 06/13/25 03:30 Neut % (Auto) 52.5 % 06/13/25 03:30 Lymph % (Auto) 33.1 % 06/13/25 03:30 Mitchell % (Auto) 9.7 % 06/13/25 03:30 Eos % (Auto) 3.7 % 06/13/25 03:30 Baso % (Auto) 0.5 % 06/13/25 03:30 Neut # (Auto) 4.98 10^3/uL (1.8-7.7) 06/13/25 03:30 Lymph # (Auto) 3.1 10^3/uL (0.8-4.8) 06/13/25 03:30 Mitchell # (Auto) 0.9 10^3/uL (0.2-0.9) 06/13/25 03:30 Eos # (Auto) 0.4 10^3/uL (0.0-0.8) 06/13/25 03:30 Baso # (Auto) 0.1 10^3/uL (0.0-0.1) 06/13/25 03:30 Nucleated RBC % (auto) 0 % 06/13/25 03:30 Nucleated RBCs # 0.0 /100WBC 06/13/25 03:30 PT 12.50 SECONDS (12.1-14.9) 06/11/25 15:11 INR 0.87 (0.8-1.2) 06/11/25 15:11 APTT 27.4 SECONDS (23.9-36.7) 06/11/25 15:11 Specimen Type Arterial 06/12/25:28 Sample Site Radial, right 06/12/25 15:28 ABG pH 7.44 (7.35-7.45) 06/12/25 15:28 ABG pCO2 36.3 mmHg (35-45) 06/12/25 15:28 ABG pO2 70.2 mmHg (80.0-100.0) L 06/12/25 15:28 ABG PO2/FiO2 Ratio 334 06/12/25 15:28 ABG HCO3 24.5 mmol/L (22-26) 06/12/25 15:28 ABG Base Excess 0.6 mmol/L (-2.0-2.0) 06/12/25:28 Rito Test Pos 06/12/25 15:28 Hematocrit 46.2 % (42-52) 06/12/25 15:28 O2 Delivery Device Room air 06/12/25 15:28 FiO2 21.0 % 06/12/25 15:28 Computer Consultant ID Gd 06/12/25 15:28 Sodium 141 mmol/L (136-145) 06/13/25 03:30 Potassium 3.9 mmol/L (3.5-5.1) 06/13/25 03:30 Chloride 104 mmol/L (98-107) 06/13/25 03:30 Carbon Dioxide 26 mmol/L (22-29) 06/13/25 03:30 Anion Gap 14.9 (5-19) 06/13/25 03:30 BUN 17 mg/dL (8-23) 06/13/25 03:30 Creatinine 0.8 mg/dL (0.7-1.2) 06/13/25 03:30 GFR Calculation Not Reportable 06/13/25 03:30 Glucose 120 mg/dL (65-115) H 06/13/25 03:30 POC Glucose 114 mg/dL (70-110) H 06/11/25 17:25 Estimat Average Glucose 134 06/12/25 15:24 Hemoglobin A1c 6.3 % (4.0-6.0) H 06/12/25 15:24 Calculated Osmolality 295 mOsm/kg (285-295) 06/13/25 03:30 Lactate 1.6 mmol/L (0.5-2.2) 06/12/25 15:24 Calcium 9.2 mg/dL (8.5-10.5) 06/13/25 03:30 Phosphorus 3.2 mg/dL (2.5-4.5) 06/13/25 03:30 Magnesium 2.3 mg/dL (1.7-2.3) 06/13/25 03:30 Iron 82 ug/dL (59-158) 06/11/25 15:11 TIBC 268 mcg/dl 06/11/25 15:11 % Saturation 30.5 % (20-50) 06/11/25 15:11 Unsat Iron Binding 186 ug/dL (112-347) 06/11/25 15:11 Total Bilirubin 0.5 mg/dL (0.15-1.2) 06/13/25 03:30 AST 29 U/L (0-40) 06/13/25 03:30 ALT 9 U/L (0-41) 06/13/25 03:30 Alkaline Phosphatase 51 U/L (40-130) 06/13/25 03:30 NT-Pro-B Natriuret Pep 37 pg/mL (0-450) 06/12/25 15:24 Total Protein 7.0 g/dL (6.6-8.7) 06/13/25 03:30 Albumin 3.9 g/dL (3.5-5.2) 06/13/25 03:30 Globulin 3.1 g/dL (1.3-4.6) 06/13/25 03:30 Triglycerides 172 mg/dL (0-150) H 06/12/25 15:24 Cholesterol 180 mg/dL (0-200) 06/12/25 15:24 LDL Cholesterol, Calc 106 mg/dL (50-129) 06/12/25 15:24 HDL Cholesterol 40 mg/dL (60-100) L 06/12/25 15:24 LDL/HDL Ratio 2.65 RATIO (0.00-3.22) 06/12/25 15:24 Cholesterol/HDL Ratio 4.50 mg/dL (1.0-5.00) 06/12/25 15:24 Vitamin B12 450 pg/mL (232-1245) 06/11/25 15:11 Folate > 20.0 ng/mL (4.5-32.2) 06/12/25 15:24 Procalcitonin 0.15 ng/mL (0-0.5) 06/12/25 15:24 TSH 1.20 uIU/mL (0.27-4.20) 06/11/25 15:11 Urine Color Yellow (Yellow) 06/11/25 15:52 Urine Appearance Clear (CLEAR) 06/11/25 15:52 Urine pH 5.5 (5-7) 06/11/25 15:52 Ur Specific [place] 1.012 (1.005-1.030) 06/11/25 15:52 Urine Protein Negative (Negative) 06/11/25 15:52 Urine Glucose (UA) Negative (Normal) 06/11/25 15:52 Urine Ketones Negative (Negative) 06/11/25 15:52 Urine Blood Trace (Negative) A 06/11/25 15:52 Urine Nitrate Negative (Negative) 06/11/25 15:52 Urine Bilirubin Negative (Negative) 06/11/25 15:52 Urine Urobilinogen 0.2 mg/dL (Negative) 06/11/25 15:52 Ur Leukocyte Esterase Negative (Negative) 06/11/25 15:52 Urine RBC None /hpf (0-2) 06/11/25 15:52 Urine WBC Rare /hpf (0-5) 06/11/25 15:52 Ur Squamous Epith Cells None /hpf (0-5) 06/11/25 15:52 Amorphous Sediment Not Reportable 06/11/25 15:52 Urine Bacteria None /hpf (NONE) 06/11/25 15:52 Urine Mucus None /hpf 06/11/25 15:52 Urine Opiates Screen Negative ng/mL (Negative) 06/11/25 15:52 Ur Barbiturates Screen Negative ng/mL (Negative) 06/11/25 15:52 Ur Phencyclidine Scrn Negative ng/mL (Negative) 06/11/25 15:52 Ur Amphetamines Screen Negative ng/mL (Negative) 06/11/25 15:52 U Benzodiazepines Scrn Negative ng/mL (Negative) 06/11/25 15:52 Urine Cocaine Screen Negative ng/mL (Negative) 06/11/25 15:52 U Marijuana (THC) Screen Negative ng/mL (Negative) 06/11/25 15:52 Ethyl Alcohol < 10 mg/dL (0-10) 06/11/25 15:11 Vitals Last Vital Signs Temp 97.7 F 06/13/25 07:49 Pulse 78 06/13/25 07:49 Resp 15 06/13/25 07:49 BP 101/78 06/13/25 07:49 Pulse Ox 96 06/13/25 07:49 O2 Del Method Room Air 06/13/25 04:00 Discharge Plan Discharge Patient Disposition: Home Condition: Stable Prescriptions: Continued omeprazole 40 mg capsule,delayed release(DR/EC) 40 mg PO QAM spironolactone 25 mg tablet 25 mg PO DAILY Qty: 90 3RF (DME) diabetic shoes with 3 inserts See Rx Instructions .Route .MEDSUPPLY Qty: 1 0RF Rx Instructions: As directed to the shoe [place] sertraline 50 mg tablet 50 mg PO QAM (DME) diabetic shoes with 3 inserts See Rx Instructions .Route .MEDSUPPLY Qty: 1 0RF Rx Instructions: As directed to the [facility] amlodipine [Norvasc] 10 mg tablet 10 mg PO DAILY carbidopa-levodopa [Sinemet] 25-100 mg tablet 1 tab PO QID 90 Days Qty: 360 3RF cholecalciferol (vitamin D3) 625 mcg (25,000 unit) capsule 50,000 unit PO .weekly Qty: 14 3RF (DME) diabetic shoes with 3 inserts See Rx Instructions .Route .MEDSUPPLY Qty: 1 0RF Rx Instructions: As directed to [facility] folic acid 400 mcg Tablet 0.4 mg PO DAILY aspirin 81 mg Tablet,Delayed Release (Dr/Ec) 81 mg PO DAILY triamcinolone acetonide 0.1 % Ointment 1 applic TOPICAL BID PRN (Reason: skin irritation/bites) losartan 100 mg Tablet 100 mg PO DAILY rosuvastatin 40 mg Tablet 20 mg PO QPM metformin 500 mg Tablet Extended Release 24hr 500 mg PO DAILY apple cider vinegar 300 mg Tablet 300 mg PO DAILY diclofenac sodium 1 % Gel See Rx Instructions .ROUTE .COMPLEX Rx Instructions: Apply 2 grams to affected area(s) 4 times daily for osteoarthritis. No more than 16 grams daily to any lower extremity joint, No more than 8 grams daily to any upper extremity joint.l Max of 32 grams per day over all joints. omega 1-rju-iny-fish oil [Fish Oil] 1,000 (120-180) mg Capsule 1 cap PO TID Discharge Order = DC NOW: Discharge Order (Routine); Ordered 06/13/25 Ordered By: Gerri Wright Other Ambulatory Orders: Physical Therapy Eval and Treat Outpatient (Order) Timeframe: 1 Day Facility: [facility] - Location: Physical Therapy Ordered By: Gerri Wright Referrals: Rosita Quiroz MD [Physician, Neurology] - 06/17/25 10:45 am Alee Hernandez FNP [Primary Care Provider, Nurse Practitioner] - 06/21/25 10:30 am Discharge Diet: Soft Mechanical Discharge Activity: Increase activity as tolerated Patient Instructions: Heart Failure (DC), Parkinson Disease (DC), Aphasia (DC), Altered Mental Status (ED), Opioid Safety, Patient Portal & Karen Instructions Discharge Attestations Time Spent in Discharge Care*: greater than 30 min Quality Metrics Clinical Quality Measures [ Cerebrovascular Accident { Contraindication to Antithrombotic: None; antithrombotic prescribed; Contraindication to Anticoagulation: Overlap treatment not indicated; Contraindication to Statin: None; Statin prescribed;}] Coding Level of Care Code 39776 Diagnoses Cerebrovascular accident I63.9 Aphasia R47.01 History of thrombolytic therapy Z92.89 HTN (hypertension) I10 Parkinson disease, symptomatic G20 Gait instability R26.81 Chronic diastolic (congestive) heart failure I50.32
[2025-06-13] MEDS: LOSARTAN 100 MG TABLET PO (10:16)
--- NOTE | 2025-06-21 12:29 | PC.NURSE ---
continuity coordinator follow up phone call completed- Patient states he is doing well. He communicated very well during our phone call. No deficits noted. He followed up with Dr. Quiroz 06/17 and his PCP today. Patient is currently working on setting up his PT/OT.
== END 2025-06-13 11:59 | disposition home or self-care (01) | DRG 62 ==
LOC: ER 16:12 → ICU 16:24 → CSU 06-13 03:50
PROVIDERS: Admitting Provider Student in an Organized Health Care Education/Training Program; Emergency Provider Emergency Medicine; PCP Nurse Practitioner; Visit Provider Student in an Organized Health Care Education/Training Program
DX: I63.9 Cerebral infarction, unspecified (principal); I50.32 Chronic diastolic (congestive) heart failure; R47.01 Aphasia; I10 Essential (primary) hypertension; E66.9 Obesity, unspecified; G20.A1 Parkinson's disease without dyskinesia, without mention of fluctuations; E11.9 Type 2 diabetes mellitus without complications; I25.10 Atherosclerotic heart disease of native coronary artery without angina pectoris; I65.22 Occlusion and stenosis of left carotid artery; R26.89 Other abnormalities of gait and mobility; I11.0 Hypertensive heart disease with heart failure; R29.707 NIHSS score 7; D72.829 Elevated white blood cell count, unspecified; K21.9 Gastro-esophageal reflux disease without esophagitis; Z68.38 Body mass index [BMI] 38.0-38.9, adult; Z79.899 Other long term (current) drug therapy; Z79.84 Long term (current) use of oral hypoglycemic drugs; Z86.73 Personal history of transient ischemic attack (TIA), and cerebral infarction without residual deficits; Z85.038 Personal history of other malignant neoplasm of large intestine
CPT/HCPCS: 36415; 36416; 36600; 70450; 70496; 70498; 71045; 80053; 80061; 80306; 80307; 81001; 82607; 82746; 82803; 82962; 83036; 83540; 83550; 83605; 83735; 83880; 84100; 84145; 84443; 85025; 85610; 85730; 92523; 92610; 93005; 93306; 94664; 96374; 97116; 97162; 97165; 99291; J2470; J3101; J9999

== ENCOUNTER → 2025-06-17 10:18 | Outpatient (BNVA) | payer OTHER, SELFPAY | PROVIDERS: PCP Nurse Practitioner; Visit Provider Specialist | DX: I63.512 Cerebral infarction due to unspecified occlusion or stenosis of left middle cerebral artery (principal); G20.A1 Parkinson's disease without dyskinesia, without mention of fluctuations; Z92.89 Personal history of other medical treatment; E11.9 Type 2 diabetes mellitus without complications; E66.9 Obesity, unspecified; R26.81 Unsteadiness on feet | CPT/HCPCS: 99215 ==

== ENCOUNTER → 2025-08-22 10:15 | Outpatient (BNVA) | payer OTHER, SELFPAY | PROVIDERS: PCP Nurse Practitioner; Visit Provider Podiatrist Foot & Ankle Surgery | DX: E11.42 Type 2 diabetes mellitus with diabetic polyneuropathy (principal); B35.1 Tinea unguium; E11.8 Type 2 diabetes mellitus with unspecified complications; G62.9 Polyneuropathy, unspecified; I73.9 Peripheral vascular disease, unspecified; Z79.84 Long term (current) use of oral hypoglycemic drugs | CPT/HCPCS: 11721; 99213 ==